=== PATIENT | male | born 1955 | race Caucasian/White ===

== ENCOUNTER 2016-04-22 11:25 | Emergency (ER) | payer BC ==
[2016-04-22] MEDS ORDERED: Sodium Chloride 0.9% 2.5 ML Syringe FLUSH PRN (11:47)
[2016-04-22] MEDS ORDERED: Sodium Chloride 0.9% 10 ML Syringe FLUSH PRN (11:47)
--- NOTE | 2016-04-22 11:57 | EDM.PDOC ---
ED HPI GENERAL MEDICAL PROBLEM - General Chief Complaint: General Stated Complaint: UNK Time Seen by Provider: 04/22/16 11:34 - History of Present Illness INITIAL COMMENTS - FREE TEXT/NARRATIVE: History of present illness: [] Patient has had 4 days of a strange sensation in his chest states it's not painful but just doesn't feel right. He feels that every 20th breath or so he has to take a deeper breath. He can't describe the quality of the sensation. He has a history of A. fib and is concerned he's been in A. fib. He took one aspirin this morning but denies any shortness of breath, dizziness, nausea, vomiting, diarrhea. Review of systems: As per history of present illness and below otherwise all systems reviewed and negative. Past medical history: As per history of present illness and as reviewed below otherwise noncontributory. Surgical history: As per history of present illness and as reviewed below otherwise noncontributory. Social history: No reported history of drug or alcohol abuse. Family history: As per history of present illness and as reviewed below otherwise noncontributory. Physical exam: General: Well developed, well nourished in NAD HEENT: Atraumatic, normocephalic, pupils reactive, negative for conjunctival pallor or scleral icterus, mucous membranes moist, throat clear, neck supple, nontender, trachea midline. Lungs: Clear to auscultation, breath sounds equal bilaterally, chest nontender. Heart: S1S2, regular, negative for clicks, rubs, or JVD. Abdomen: Soft, nondistended, nontender. Negative for masses or hepatosplenomegaly. Negative for costovertebral tenderness. Pelvis: Stable nontender. Genitourinary: Deferred. Rectal: Deferred. Extremities: Atraumatic, negative for cords or calf pain. Neurovascular unremarkable. Neuro: Awake, alert, oriented. Cranial nerves II through XII unremarkable. Cerebellum unremarkable. Motor and sensory unremarkable throughout. Exam nonfocal. Diagnostics: [] EKG shows normal sinus rhythm with occasional PVCs, no acute ischemia, labs rule out LA, given his symptoms have been present for 4 days. Therapeutics: [] Impression: [] Premature ventricular contractions Plan: [] Followup primary care physician return if symptoms worsen Definitive disposition and diagnosis as appropriate pending reevaluation and review of above. - Related Data Allergies Allergy/AdvReac Type Severity Reaction Status Date / Time cat dander Allergy watery eyes Verified 10/05/15 09:09 dust Allergy watery eyes Uncoded 10/05/15 09:09 Home Meds: Home Meds Aspirin [Halfprin] 81 mg PO ONETIME 05/23/15 [History] Acetaminophen/Diphenhydramine [Tylenol Pm Ex-Strength Caplet] 1 tab PO BEDTIME PRN 10/05/15 [History] Metoprolol Tartrate 25 mg PO BID 10/05/15 [History] Nitroglycerin [Nitrostat] 0.4 mg SL ASDIRECTED PRN 10/05/15 [History] Ranitidine HCl [Ranitidine] 150 mg PO BID 10/05/15 [History] Past Medical History HEENT History: Reports: None Other HEENT History: has upper dental plate Cardiovascular History: Reports: Afib Respiratory History: Reports: None Other Respiratory History: recently tested for sleep apnea (friday) Gastrointestinal History: Reports: GERD Genitourinary History: Reports: None Other Genitourinary History: symptoms of BPH Musculoskeletal History: Reports: None Neurological History: Reports: None Psychiatric History: Reports: None Endocrine/Metabolic History: Reports: None Hematologic History: Reports: None Other Hematologic History: pt states he "may have had blood transfusion with hernia repair" Immunologic History: Reports: None Oncologic (Cancer) History: Reports: None Dermatologic History: Reports: None - Infectious Disease History Infectious Disease History: Reports: Chicken pox, Measles, Mumps, Rubella - Past Surgical History Head Surgeries/Procedures: Reports: None GI Surgical History: Reports: Appendectomy, Hernia, inguinal Neurological Surgical History: Reports: None Dermatological Surgical History: Reports: None Social & Family History - Family History Family Medical History: Noncontributory - Tobacco Use Smoking Status *Q: Never Smoker Second Hand Smoke Exposure: No - Caffeine Use Caffeine Use: Reports: Soda - Recreational Drug Use Recreational Drug Use: No Drug Use in Last 12 Months: No ED ROS GENERAL - Review of Systems Review Of Systems: See Below (See history of present illness) ED EXAM, GENERAL - Physical Exam Exam: See Below (See history of present illness) Course - Vital Signs Last Recorded V/S: Last Vital Signs Temp 36.6 C 04/22/16 12:35 Pulse 59 L 04/22/16 12:35 Resp 17 04/22/16 12:35 BP 142/95 H 04/22/16 12:35 Pulse Ox 96 04/22/16 12:35 - Orders/Labs/Meds Orders: Active Orders 24 hr Category Date Time Status EKG 12 Lead [EKG Documentation Completion] [RC] STAT Care 04/22/16 11:56 Active Chest 1V Frontal [CR] Stat Exams 04/22/16 11:46 Taken Sodium Chloride 0.9% [Saline Flush] Med 04/22/16 11:47 Active 10 ml FLUSH ASDIRECTED PRN Sodium Chloride 0.9% [Saline Flush] Med 04/22/16 11:47 Active 2.5 ml FLUSH ASDIRECTED PRN Peripheral IV Insertion Adult [OM.PC] Stat Oth 04/22/16 11:46 Ordered Medication Orders Sodium Chloride (Saline Flush) 10 ml FLUSH ASDIRECTED PRN PRN Reason: Keep Vein Open Sodium Chloride (Saline Flush) 2.5 ml FLUSH ASDIRECTED PRN PRN Reason: Keep Vein Open Labs: Laboratory Tests 04/22/16 04/22/16 04/22/16 Range/Units 11:40 11:40 11:40 WBC 9.32 (4.0-11.0) K/uL RBC 4.88 (4.50-5.90) M/uL Hgb 14.0 (13.0-17.0) g/dL Hct 40.9 (38.0-50.0) % MCV 83.8 (80.0-98.0) fL MCH 28.7 (27.0-32.0) pg MCHC 34.2 (31.0-37.0) g/dL RDW Std Deviation 39.7 (28.0-62.0) fl RDW Coeff of Alessia 13 (11.0-15.0) % Plt Count 139 L (150-400) K/uL MPV 9.70 (7.40-12.00) fL Neut % (Auto) 44.4 L (48.0-80.0) % Lymph % (Auto) 45.5 H (16.0-40.0) % [place] % (Auto) 8.2 (0.0-15.0) % Eos % (Auto) 1.6 (0.0-7.0) % Baso % (Auto) 0.3 (0.0-1.5) % Neut # 4.1 (1.4-5.7) K/uL Lymph # 4.2 H (0.6-2.4) K/uL [place] # 0.8 (0.0-0.8) K/uL Eos # 0.2 (0.0-0.7) K/uL Baso # 0.0 (0.0-0.1) K/uL Nucleated RBC % 0.0 /100WBC Nucleated RBCs # 0 K/uL Sodium 140 (136-146) mmol/L Potassium 4.1 (3.5-5.1) mmol/L Chloride 109 (98-110) mmol/L Carbon Dioxide 23 (21-31) mmol/L BUN 18 (6.0-23.0) mg/dL Creatinine 1.3 (0.6-1.5) mg/dL Est Cr Clr Drug Dosing 57.00 mL/min Estimated GFR (MDRD) 55.9 ml/min Glucose 116 H (60-110) mg/dL Calcium 9.3 (8.8-10.8) mg/dL Total Bilirubin 1.0 (0.1-1.5) mg/dL AST 17 (5-40) IU/L ALT 23 (8-54) IU/L Alkaline Phosphatase 62 (40-150) Troponin I < 0.10 (0.0-0.29) NG/ML Total Protein 6.7 (6.0-8.0) g/dL Albumin 4.0 (3.4-4.8) g/dL Globulin 2.7 (2.0-3.5) g/dL Albumin/Globulin Ratio 1.5 (1.3-2.8) Meds: Medications Generic Name Dose Route Start Last Admin Trade Name Freq PRN Reason Stop Dose Admin Sodium Chloride 10 ml 04/22/16 11:47 Saline Flush FLUSH ASDIRECTED PRN Keep Vein Open Sodium Chloride 2.5 ml 04/22/16 11:47 Saline Flush FLUSH ASDIRECTED PRN Keep Vein Open Departure - Departure Time of Disposition: 13:00 Disposition: Home, Self-Care 01 Condition: good Clinical Impression: PVCs (premature ventricular contractions) Forms: ED Department Discharge Additional Instructions: The following information is given to patients seen in the emergency department who are being discharged to home. This information is to outline your options for follow-up care. We provide all patients seen in our emergency department with a follow-up referral. The need for follow-up, as well as the timing and circumstances, are variable depending upon the specifics of your emergency department visit. If you don't have a primary care physician on staff, we will provide you with a referral. We always advise you to contact your personal physician following an emergency department visit to inform them of the circumstance of the visit and for follow-up with them and/or the need for any referrals to a consulting specialist. The emergency department will also refer you to a specialist when appropriate. This referral assures that you have the opportunity for follow-up care with a specialist. All of these measure are taken in an effort to provide you with optimal care, which includes your follow-up. Under all circumstances we always encourage you to contact your private physician who remains a resource for coordinating your care. When calling for follow-up care, please make the office aware that this follow-up is from your recent emergency room visit. If for any reason you are refused follow-up, please contact the [facility] Emergency Department at and asked to speak to the emergency department charge nurse. [facility] Primary Care [address] [place], [place] [id number] - My Orders Last 24 Hours: My Active Orders 04/22/16 11:46 Chest 1V Frontal [CR] Stat Peripheral IV Insertion Adult [OM.PC] Stat 04/22/16 11:47 Sodium Chloride 0.9% [Saline Flush] 10 ml FLUSH ASDIRECTED PRN Sodium Chloride 0.9% [Saline Flush] 2.5 ml FLUSH ASDIRECTED PRN 04/22/16 11:56 EKG 12 Lead [EKG Documentation Completion] [RC] STAT - Assessment/Plan Last 24 Hours: My Active Orders 04/22/16 11:46 Chest 1V Frontal [CR] Stat Peripheral IV Insertion Adult [OM.PC] Stat 04/22/16 11:47 Sodium Chloride 0.9% [Saline Flush] 10 ml FLUSH ASDIRECTED PRN Sodium Chloride 0.9% [Saline Flush] 2.5 ml FLUSH ASDIRECTED PRN 04/22/16 11:56 EKG 12 Lead [EKG Documentation Completion] [RC] STAT
[2016-04-22 13:13] VITALS: BP 148/92
--- NOTE | 2016-04-24 15:31 | CR ---
EXAM DATE: 04/22/16 PATIENT'S AGE: 60 Patient: ARGELIA WHIPPLE Facility: [place], [place] Site . Site : 1955 Study: XRay Chest [id number] 12:20:24 PM Ordering Physician: Chuck Sheridan Final Report: INDICATION: Chest pain; shortness of breath. Comparison: Chest radiograph May 23, 2015. Technique: Portable AP chest . Findings: Normal size cardiac silhouette. Clear lung carboen with no evidence of acute pneumonic infiltrates or CHF. No pneumothorax or pleural effusion. Impression: Negative portable AP chest. Dictated by Darcie Lea MD @ Apr 22 2016 12:35PM (Electronic Signature) Report Signed by Proxy and Original Signed Document filed in the Medical Record. MTDD
== END 2016-04-22 13:20 | disposition home or self-care (01) ==
LOC: MW.ED 11:25
DX: I49.3 Ventricular premature depolarization (principal); Z90.49 Acquired absence of other specified parts of digestive tract
CPT/HCPCS: 36415; 71010; 71010-26; 80053; 84484; 85025; 93005; 99283; 99285-25

== ENCOUNTER 2018-07-19 08:29 | Observation (INO) | payer BC ==
[2018-07-19] MEDS ORDERED: Aspirin 81 MG Tab.Chew PO ONE (08:38)
[2018-07-19] MEDS: Nitroglycerin 0.4 MG Tab.SL SL PRN ×2 (08:45→08:50)
[2018-07-19] MEDS ORDERED: Ondansetron 4 MG/2 ML SDV IVPUSH ONE (08:53)
[2018-07-19 09:15] LABS: CHLORIDE,CL 105 mmol/L (98-107); SODIUM,NA 141 mmol/L (136-148)
--- NOTE | 2018-07-19 09:37 | CR ---
INDICATION: chest pain INDICATION: Chest pain. TECHNIQUE: Chest 1 view. COMPARISON: None FINDINGS: Cardiovascular and mediastinum: Heart size and vasculature are normal in caliber and appearance. Mediastinum is within normal limits. Lungs and pleural space: Lungs are clear. No sign of infiltrate or mass. No sign of pleural effusion. No pneumothorax. Bones and soft tissues: No significant findings. IMPRESSION: Lungs are clear. Dictated by Mele Ye MD @ 07/19/2018 9:36:23 AM Dictated by: Mele Ye MD @ 07/19/2018 09:36:30 (Electronically Signed)
[2018-07-19] MEDS ORDERED: Pneumococcal 23-Valent Conjugate Vaccine 0.5 ML Syringe IM ONE (10:26)
--- NOTE | 2018-07-19 17:27 | PCM.HP ---
H&P History of Present Illness - General Date of Service: 07/19/18 Admit Problem/Dx: Admission Diagnosis/Problem Admission Diagnosis/Problem Chest pain - History of Present Illness Initial Comments - Free Text/Narative: 62 yo male with past medical history of atrial fibrillation who presents to the ED with one day complaint of palpitations. Patient reports he gets a flutter feeling in his chest for several seconds about every forty minutes. he denies any shortness of breath, chest pain, cough, or fevers. Patient reports he did have atrial fibrillation three years ago and at the time he was on anticoagulation for several months. Now he takes only aspirin and metoprolol. - Related Data Allergies/Adverse Reactions: Allergies Allergy/AdvReac Type Severity Reaction Status Date / Time cat dander Allergy watery eyes Verified 07/19/18 08:41 dust Allergy watery eyes Uncoded 07/19/18 08:41 Home Medications: Home Meds Aspirin [Halfprin] 81 mg PO ONETIME 05/23/15 [History] Metoprolol Tartrate 25 mg PO BID 10/05/15 [History] Nitroglycerin [Nitrostat] 0.4 mg SL ASDIRECTED PRN 10/05/15 [History] Ranitidine HCl [Ranitidine] 150 mg PO BID 10/05/15 [History] Past Medical History HEENT History: Reports: None Other HEENT History: has upper dental plate Cardiovascular History: Reports: Afib Respiratory History: Reports: Sleep Apnea Other Respiratory History: recently tested for sleep apnea (friday) Gastrointestinal History: Reports: Hiatal Hernia Genitourinary History: Reports: None Other Genitourinary History: symptoms of BPH Musculoskeletal History: Reports: None Neurological History: Reports: None Psychiatric History: Reports: None Endocrine/Metabolic History: Reports: None Hematologic History: Reports: None Other Hematologic History: pt states he "may have had blood transfusion with hernia repair" Immunologic History: Reports: None Oncologic (Cancer) History: Reports: None Dermatologic History: Reports: None - Infectious Disease History Infectious Disease History: Reports: Chicken Pox, Mumps - Past Surgical History Head Surgeries/Procedures: Reports: None GI Surgical History: Reports: Appendectomy, Hernia, Inguinal Neurological Surgical History: Reports: None Musculoskeletal Surgical History: Reports: Other (See Below) Dermatological Surgical History: Reports: None Social & Family History - Family History Family Medical History: Noncontributory - Tobacco Use Smoking Status *Q: Never Smoker Second Hand Smoke Exposure: No - Caffeine Use Caffeine Use: Reports: Soda, Tea - Recreational Drug Use Recreational Drug Use: No H&P Review of Systems - Review of Systems: Review Of Systems: ROS reveals no pertinent complaints other than HPI. Exam - Exam Exam: See Below - Vital Signs Vital Signs: Last Vital Signs Temp 36.9 C 07/19/18 16:00 Pulse 55 L 07/19/18 16:00 Resp 18 07/19/18 16:00 BP 137/79 07/19/18 16:00 Pulse Ox 95 07/19/18 16:00 Weight: 87.543 kg - Exam General: Alert, Oriented Neck: Supple Lungs: Clear to Auscultation, Normal Respiratory Effort Cardiovascular: Regular Rate, Regular Rhythm GI/Abdominal Exam: Normal Bowel Sounds, Soft, Non-Tender Extremities: Normal Inspection, Non-Tender Skin: Warm, Dry, Intact Neurological: Cranial Nerves Intact. No: Focal Deficit - Patient Data Lab Results Last 24 hrs: Laboratory Results - last 24 hr 07/19/18 07/19/18 07/19/18 Range/Units 08:35 08:39 08:39 WBC 17.30 H (4.0-11.0) K/uL RBC 5.19 (4.50-5.90) M/uL Hgb 15.2 (13.0-17.0) g/dL Hct 45.0 (38.0-50.0) % MCV 86.7 (80.0-98.0) fL MCH 29.3 (27.0-32.0) pg MCHC 33.8 (31.0-37.0) g/dL RDW Std Deviation 41.9 (28.0-62.0) fl RDW Coeff of Alessia 13 (11.0-15.0) % Plt Count 154 (150-400) K/uL MPV 10.20 (7.40-12.00) fL Add Manual Diff YES Neutrophils % (Manual) 28 L (48.0-80.0) % Band Neutrophils % 1 % Lymphocytes % (Manual) 65 H (16.0-40.0) % Monocytes % (Manual) 3 (0.0-15.0) % Eosinophils % (Manual) 1 (0.0-7.0) % Metamyelocytes % 2 % Nucleated RBC % 0.0 /100WBC Absolute Seg Neuts 4.8 (1.4-5.7) Band Neutrophils # 0.2 Lymphocytes # (Manual) 11.2 H (0.6-2.4) Monocytes # (Manual) 0.5 (0.0-0.8) Eosinophils # (Manual) 0.2 (0.0-0.7) Absolute Metamyelocyte 0.3 Nucleated RBCs # 0 K/uL INR 1.07 Sodium (136-148) mmol/L Potassium (3.5-5.1) mmol/L Chloride (98-107) mmol/L Carbon Dioxide (21.0-32.0) mmol/L BUN (7.0-18.0) mg/dL Creatinine (0.8-1.3) mg/dL Est Cr Clr Drug Dosing mL/min Estimated GFR (MDRD) ml/min Glucose (74-106) mg/dL Calcium (8.5-10.1) mg/dL Magnesium (1.8-2.4) mg/dL Total Bilirubin (0.2-1.0) mg/dL AST (15-37) IU/L ALT (14-63) IU/L Alkaline Phosphatase (46-116) U/L Troponin I (0.000-0.056) ng/mL Total Protein (6.4-8.2) g/dL Albumin (3.4-5.0) g/dL Globulin (2.6-4.0) g/dL Albumin/Globulin Ratio (0.9-1.6) H. pylori IgG Antibody NEGATIVE (NEG) 07/19/18 07/19/18 Range/Units 08:39 14:43 WBC (4.0-11.0) K/uL RBC (4.50-5.90) M/uL Hgb (13.0-17.0) g/dL Hct (38.0-50.0) % MCV (80.0-98.0) fL MCH (27.0-32.0) pg MCHC (31.0-37.0) g/dL RDW Std Deviation (28.0-62.0) fl RDW Coeff of Alessia (11.0-15.0) % Plt Count (150-400) K/uL MPV (7.40-12.00) fL Add Manual Diff Neutrophils % (Manual) (48.0-80.0) % Band Neutrophils % % Lymphocytes % (Manual) (16.0-40.0) % Monocytes % (Manual) (0.0-15.0) % Eosinophils % (Manual) (0.0-7.0) % Metamyelocytes % % Nucleated RBC % /100WBC Absolute Seg Neuts (1.4-5.7) Band Neutrophils # Lymphocytes # (Manual) (0.6-2.4) Monocytes # (Manual) (0.0-0.8) Eosinophils # (Manual) (0.0-0.7) Absolute Metamyelocyte Nucleated RBCs # K/uL INR Sodium 141 (136-148) mmol/L Potassium 3.6 (3.5-5.1) mmol/L Chloride 105 (98-107) mmol/L Carbon Dioxide 26.6 (21.0-32.0) mmol/L BUN 20 H (7.0-18.0) mg/dL Creatinine 1.5 H (0.8-1.3) mg/dL Est Cr Clr Drug Dosing 48.13 mL/min Estimated GFR (MDRD) 47.1 ml/min Glucose 136 H (74-106) mg/dL Calcium 9.3 (8.5-10.1) mg/dL Magnesium 2.0 (1.8-2.4) mg/dL Total Bilirubin 0.8 (0.2-1.0) mg/dL AST 21 (15-37) IU/L ALT 38 (14-63) IU/L Alkaline Phosphatase 72 (46-116) U/L Troponin I < 0.050 < 0.050 (0.000-0.056) ng/mL Total Protein 7.1 (6.4-8.2) g/dL Albumin 4.1 (3.4-5.0) g/dL Globulin 3.0 (2.6-4.0) g/dL Albumin/Globulin Ratio 1.4 (0.9-1.6) H. pylori IgG Antibody (NEG) Result Diagrams: 07/19/18 08:39 07/19/18 08:39 Problem List Initiated/Reviewed/Updated: Yes Orders Last 24hrs: Active Orders 24 hr Category Date Time Status Patient Status [ADT] Stat ADT 07/19/18 09:42 Active Antiembolic Devices [RC] PER UNIT ROUTINE Care 07/19/18 17:22 Ordered EKG Documentation Completion [RC] STAT Care 07/19/18 08:39 Active Oxygen Therapy [RC] PRN Care 07/19/18 17:22 Ordered Telemetry Monitoring [Cardiac Monitoring] [RC] Q8H Care 07/19/18 08:39 Active Up ad Sol [RC] ASDIRECTED Care 07/19/18 17:22 Ordered VTE/DVT Education [RC] PER UNIT ROUTINE Care 07/19/18 17:22 Ordered Vital Signs [RC] Q4H Care 07/19/18 17:22 Ordered Regular Diet [DIET] Diet 07/19/18 Lunch Active TROPONIN I [CHEM] Q6H Lab 07/19/18 20:39 Ordered Aspirin [Halfprin] Med 07/20/18 09:00 Active 81 mg PO DAILY Metoprolol Tartrate [Lopressor] Med 07/19/18 21:00 Active 25 mg PO BID Nitroglycerin [Nitrostat] Med 07/19/18 08:38 Active 0.4 mg SL Q5M PRN Ranitidine [Zantac] Med 07/19/18 21:00 Active 150 mg PO BID Sequential Compression Device [OM.PC] Per Unit Routine Oth 07/19/18 17:22 Ordered Resuscitation Status Routine Resus Stat 07/19/18 17:22 Ordered Medication Orders Aspirin (Halfprin) 81 mg PO DAILY SAQIB Metoprolol Tartrate (Lopressor) 25 mg PO BID SAQIB Nitroglycerin (Nitrostat) 0.4 mg SL Q5M PRN PRN Reason: Chest Pain Last Admin: 07/19/18 08:45 Dose: 0.4 mg Ranitidine HCl (Zantac) 150 mg PO BID [facility] [place] [place] Assessment/Plan Comment:: 62 yo male who presents with palpitations. He is found to have an elevated white count but no obvious signs of infection. We will hydrate patient with IV fluids and monitor overnight on telemetry. Serial cardiac enzymes have been ordered.
[2018-07-19] MEDS: Pantoprazole 40 MG Tab.CR PO SCH (18:53)
[2018-07-19] MEDS: Sodium Chloride 0.9% 1,000 ML IV SCH (18:53)
[2018-07-19] MEDS: Ranitidine 15 MG/ML Syrup 10 ML UD Cup PO SCH (21:11)
[2018-07-19] MEDS: Metoprolol Tartrate 25 MG Tab PO SCH (21:11)
[2018-07-20] MEDS: Sodium Chloride 0.9% 1,000 ML IV SCH (02:35)
[2018-07-20] MEDS ORDERED: Acetaminophen 500 MG Tab PO ONE (03:48)
[2018-07-20] MEDS ORDERED: diphenhydrAMINE 25 MG Cap PO ONE (03:51)
[2018-07-20 07:46] VITALS: BP 126/74
[2018-07-20] MEDS ORDERED: Aspirin 81 MG Tab.EC PO SCH (09:00)
[2018-07-20] MEDS: Ranitidine 15 MG/ML Syrup 10 ML UD Cup PO SCH (09:19)
[2018-07-20] MEDS: Pantoprazole 40 MG Tab.CR PO SCH (09:19)
--- NOTE | 2018-07-20 09:20 | PCM.DCSUM1 ---
Discharge Summary - Hospital Course HPI Initial Comments: The patient was admitted secondary to chest pain and palpitations. Diagnosis: Stroke: No - Discharge Data Discharge Date: 07/20/18 Discharge Disposition: Home, Self-Care 01 Condition: Good - Discharge Diagnosis/Problem(s) (1) CKD (chronic kidney disease) stage 3, GFR 30-59 ml/min SNOMED Code(s): 619403928 ICD Code: N18.3 - CHRONIC KIDNEY DISEASE, STAGE 3 (MODERATE) Status: Chronic Priority: Medium (2) Hypertension SNOMED Code(s): 78969710 ICD Code: I10 - ESSENTIAL (PRIMARY) HYPERTENSION Status: Chronic Priority : High Qualifiers: Hypertension type: essential hypertension Qualified Code(s): I10 - Essential (primary) hypertension (3) Lymphocytosis SNOMED Code(s): 52615448 ICD Code: D72.820 - LYMPHOCYTOSIS (SYMPTOMATIC) Status: Chronic Priority : Medium (4) Atrial fibrillation SNOMED Code(s): 38110884 ICD Code: I48.91 - UNSPECIFIED ATRIAL FIBRILLATION Status: Resolved Priority: High Qualifiers: Atrial fibrillation type: unspecified Qualified Code(s): I48.91 - Unspecified atrial fibrillation (5) PVCs (premature ventricular contractions) SNOMED Code(s): 07894717 ICD Code: I49.3 - VENTRICULAR PREMATURE DEPOLARIZATION Status: Chronic Priority: Medium - Patient Summary/Data Hospital Course: The patient is a 62-year-old gentleman who had been admitted yesterday secondary to chest pain with atrial fibrillation. He had been complaining of one day's worth of palpitations. The patient was admitted, fluid hydrated and kept on telemetry. Telemetry did not show any events overnight. His EKG has shown no incidences. The patient also was noted to have troponins that were tested 3 which were essentially undetectable. The patient also had a BUN/ creatinine and creatinine both of which were minimally elevated which showed mild depression in his EGFR of 48.13 mL/m. The patient had been informed of this. Interestingly, the patient did have a white blood cell count that was elevated at 17,000 with 65% lymphocytes without signs of infection. I advised the patient to follow-up with his primary care physician for this. The patient had remained hemodynamically stable, in normal sinus rhythm, and well overnight. The patient has been recommended continue with a heart healthy diet. He is to follow-up with his primary care physician. The patient is to have activity as tolerated. The patient has been hemodynamically stable and he is discharged from hospitalization with recommendations listed above. - Patient Instructions Diet: Heart Healthy Diet Activity: As Tolerated Notify Provider of: Fever, Increased Pain - Discharge Plan *PRESCRIPTION DRUG MONITORING PROGRAM REVIEWED*: No *COPY OF PRESCRIPTION DRUG MONITORING REPORT IN PATIENT OLGA: No Home Medications: Home Meds Aspirin [Halfprin] 81 mg PO ONETIME 05/23/15 [History] Metoprolol Tartrate 25 mg PO BID 10/05/15 [History] Nitroglycerin [Nitrostat] 0.4 mg SL ASDIRECTED PRN 10/05/15 [History] Ranitidine HCl [Ranitidine] 150 mg PO BID 10/05/15 [History] Patient Handouts: VIS, Pneumococcal Conjugate (PCV13) - [facility] (12/15/2014), Nonspecific Chest Pain, [id number], Atrial Fibrillation, [id number] Referrals: Dayron Leung MD [Physician] - 08/17/18 1:00 pm Mele Ennis MD [Primary Care Provider] - 08/06/18 2:45 pm - Discharge Summary/Plan Comment DC Time >30 min.: Yes - General Info Date of Service: 07/22/18 Admission Dx/Problem (Free Text: Admission Diagnosis/Problem Admission Diagnosis/Problem Chest pain, history of a fib. Functional Status: Reports: Pain Controlled - Review of Systems General: Reports: No Symptoms HEENT: Reports: No Symptoms Pulmonary: Reports: No Symptoms Cardiovascular: Reports: No Symptoms Gastrointestinal: Reports: No Symptoms Genitourinary: Reports: No Symptoms Musculoskeletal: Reports: No Symptoms Skin: Reports: No Symptoms Neurological: Reports: No Symptoms Psychiatric: Reports: No Symptoms - Patient Data Vitals - Most Recent: Last Vital Signs Temp 36.3 C 07/20/18 07:45 Pulse 51 L 07/20/18 07:45 Resp 16 07/20/18 07:45 BP 126/74 07/20/18 07:45 Pulse Ox 97 07/20/18 07:45 Weight - Most Recent: 87.543 kg I&O - Last 24 hours: Intake & Output 07/19/18 07/20/18 07/20/18 22:59 06:59 14:59 Intake Total 610 1851 Output Total 500 1350 Balance 110 501 Lab Results - Last 24 hrs: Laboratory Results - last 24 hr 07/19/18 07/19/18 07/19/18 Range/Units 08:35 14:43 17:45 Magnesium 2.0 (1.8-2.4) mg/dL Troponin I < 0.050 (0.000-0.056) ng/mL Urine Color YELLOW Urine Appearance CLEAR Urine pH 7.0 (5.0-8.0) Ur Specific Hunter 1.010 (1.001-1.035) Urine Protein NEGATIVE (NEGATIVE) mg/dL Urine Glucose (UA) NEGATIVE (NEGATIVE) mg/dL Urine Ketones NEGATIVE (NEGATIVE) mg/dL Urine Occult Blood NEGATIVE (NEGATIVE) Urine Nitrite NEGATIVE (NEGATIVE) Urine Bilirubin NEGATIVE (NEGATIVE) Urine Urobilinogen 0.2 (<2.0) EU/dL Ur Leukocyte Esterase NEGATIVE (NEGATIVE) H. pylori IgG Antibody NEGATIVE (NEG) 07/19/18 Range/Units 21:00 Magnesium (1.8-2.4) mg/dL Troponin I < 0.050 (0.000-0.056) ng/mL Urine Color Urine Appearance Urine pH (5.0-8.0) Ur Specific Hunter (1.001-1.035) Urine Protein (NEGATIVE) mg/dL Urine Glucose (UA) (NEGATIVE) mg/dL Urine Ketones (NEGATIVE) mg/dL Urine Occult Blood (NEGATIVE) Urine Nitrite (NEGATIVE) Urine Bilirubin (NEGATIVE) Urine Urobilinogen (<2.0) EU/dL Ur Leukocyte Esterase (NEGATIVE) H. pylori IgG Antibody (NEG) Med Orders - Current: Current Medications Aspirin (Halfprin) 81 mg PO DAILY [facility] Last Admin: 07/20/18 09:19 Dose: 81 mg Sodium Chloride (Normal Saline) 1,000 mls @ 125 mls/hr IV ASDIRECTED [facility] Last Admin: 07/20/18 02:35 Dose: 125 mls/hr Metoprolol Tartrate (Lopressor) 25 mg PO BID [facility] Last Admin: 07/19/18 21:11 Dose: 25 mg Nitroglycerin (Nitrostat) 0.4 mg SL Q5M PRN PRN Reason: Chest Pain Last Admin: 07/19/18 08:45 Dose: 0.4 mg Pantoprazole Sodium (Protonix) 40 mg PO DAILY [facility] Last Admin: 07/20/18 09:19 Dose: 40 mg Ranitidine HCl (Zantac) 150 mg PO BID [facility] Last Admin: 07/20/18 09:19 Dose: 150 mg Discontinued Medications Acetaminophen (Tylenol Extra Strength) 500 mg PO ONETIME ONE Stop: 07/20/18 03:49 Last Admin: 07/20/18 04:10 Dose: 500 mg Aspirin (Aspirin) 324 mg PO ONETIME ONE Stop: 07/19/18 08:39 Last Admin: 07/19/18 08:43 Dose: 324 mg Diphenhydramine HCl (Benadryl) 25 mg PO ONETIME ONE Stop: 07/20/18 03:52 Last Admin: 07/20/18 04:10 Dose: 25 mg Ondansetron HCl (Zofran) 4 mg IVPUSH ONETIME ONE Stop: 07/19/18 08:54 Last Admin: 07/19/18 08:56 Dose: 4 mg Pneumococcal Polyvalent Vaccine (Pneumovax 23) 25 mcg IM .ONCE ONE Stop: 07/19/18 10:27 - Exam Quality Assessment: Denies: Supplemental Oxygen General: Reports: Alert, Oriented, Cooperative, No Acute Distress HEENT: Reports: Pupils Equal, Pupils Reactive Neck: Reports: Supple, Trachea Midline Lungs: Reports: Clear to Auscultation, Normal Respiratory Effort Cardiovascular: Reports: Regular Rate, Regular Rhythm GI/Abdominal Exam: Normal Bowel Sounds, Soft, Non-Tender, No Distention Back Exam: Reports: Normal Inspection, Full Range of Motion Extremities: Normal Inspection, Normal Range of Motion, No Pedal Edema Skin: Reports: Warm, Dry, Intact Neurological: Reports: No New Focal Deficit Psy/Mental Status: Reports: Alert, Normal Affect, Normal Mood
[2018-07-20] MEDS: Metoprolol Tartrate 25 MG Tab PO SCH (09:21)
[2018-07-20] MEDS ORDERED: Pneumococcal Polyvalent-23 Vaccine 0.5 ML SDV IM ONE (10:30)
--- NOTE | 2018-07-21 09:30 | EDM.PDOC ---
ED HPI GENERAL MEDICAL PROBLEM - General Chief Complaint: Cardiovascular Problem Stated Complaint: ERRATIC HEARTBEAT; AFIB INCIDENT BEFORE Time Seen by Provider: 07/19/18 08:35 Source of Information: Reports: Patient History Limitations: Reports: No Limitations - History of Present Illness INITIAL COMMENTS - FREE TEXT/NARRATIVE: History of present illness: []Patient states he woke up feeling like his heart was beating irregularly. He has had a history of A. fib in the past but is not been treated other than aspirin daily. Patient has a different sensation in his chest but it is not pain. He denies any shortness of breath, cough, fevers, chills, vomiting, diarrhea or syncope Review of systems: As per history of present illness and below otherwise all systems reviewed and negative. Past medical history: As per history of present illness and as reviewed below otherwise noncontributory. Surgical history: As per history of present illness and as reviewed below otherwise noncontributory. Social history: No reported history of drug or alcohol abuse. Family history: As per history of present illness and as reviewed below otherwise noncontributory. Physical exam: General: Well developed, well nourished in NAD HEENT: Atraumatic, normocephalic, pupils reactive, negative for conjunctival pallor or scleral icterus, mucous membranes moist, throat clear, neck supple, nontender, trachea midline. Lungs: Clear to auscultation, breath sounds equal bilaterally, chest nontender. Heart: S1S2, regular, negative for clicks, rubs, or JVD. Abdomen: NABS, Soft, nondistended, nontender. Negative for masses or hepatosplenomegaly. Negative for costovertebral tenderness. Pelvis: Stable nontender. Genitourinary: Deferred. Rectal: Deferred. Extremities: Atraumatic, negative for cords or calf pain. Neurovascular unremarkable. Neuro: Awake, alert, oriented. Cranial nerves II through XII unremarkable. Cerebellum unremarkable. Motor and sensory unremarkable throughout. Exam nonfocal. Skin:warm and dry Diagnostics: CBC, chemistry, EKG, chest x-ray, troponin Therapeutics: Aspirin, nitroglycerin ED Course: Stable Impression: Chest pain with palpitations Prescriptions: None Plan: Admit to hospitalist for observation Definitive disposition and diagnosis as appropriate pending reevaluation and review of above. - Related Data Allergies Allergy/AdvReac Type Severity Reaction Status Date / Time cat dander Allergy watery eyes Verified 07/19/18 08:41 dust Allergy watery eyes Uncoded 07/19/18 08:41 Home Meds: Home Meds Aspirin [Halfprin] 81 mg PO ONETIME 05/23/15 [History] Metoprolol Tartrate 25 mg PO BID 10/05/15 [History] Nitroglycerin [Nitrostat] 0.4 mg SL ASDIRECTED PRN 10/05/15 [History] Ranitidine HCl [Ranitidine] 150 mg PO BID 10/05/15 [History] Past Medical History HEENT History: Reports: None Other HEENT History: has upper dental plate Cardiovascular History: Reports: Afib Respiratory History: Reports: Sleep Apnea Other Respiratory History: recently tested for sleep apnea (friday) Gastrointestinal History: Reports: Hiatal Hernia Genitourinary History: Reports: None Other Genitourinary History: symptoms of BPH Musculoskeletal History: Reports: None Neurological History: Reports: None Psychiatric History: Reports: None Endocrine/Metabolic History: Reports: None Hematologic History: Reports: None Other Hematologic History: pt states he "may have had blood transfusion with hernia repair" Immunologic History: Reports: None Oncologic (Cancer) History: Reports: None Dermatologic History: Reports: None - Infectious Disease History Infectious Disease History: Reports: Chicken Pox, Mumps - Past Surgical History Head Surgeries/Procedures: Reports: None GI Surgical History: Reports: Appendectomy, Hernia, Inguinal Neurological Surgical History: Reports: None Musculoskeletal Surgical History: Reports: Other (See Below) Dermatological Surgical History: Reports: None Social & Family History - Family History Family Medical History: Noncontributory - Tobacco Use Smoking Status *Q: Never Smoker Second Hand Smoke Exposure: No - Caffeine Use Caffeine Use: Reports: Soda, Tea - Recreational Drug Use Recreational Drug Use: No ED ROS GENERAL - Review of Systems Review Of Systems: ROS reveals no pertinent complaints other than HPI. ED EXAM, GENERAL - Physical Exam Exam: See Below (See history of present illness) GI/Abdominal: Normal Bowel Sounds, Soft, Non-Tender Extremities: Normal Inspection, Non-Tender Course - Vital Signs Last Recorded V/S: Last Vital Signs Temp 97.3 F 07/20/18 07:45 Pulse 58 L 07/20/18 09:21 Resp 16 07/20/18 07:45 BP 126/74 07/20/18 09:21 Pulse Ox 97 07/20/18 07:45 - Orders/Labs/Meds Labs: Laboratory Tests 07/19/18 07/19/18 07/19/18 Range/Units 08:35 08:39 08:39 WBC 17.30 H (4.0-11.0) K/uL RBC 5.19 (4.50-5.90) M/uL Hgb 15.2 (13.0-17.0) g/dL Hct 45.0 (38.0-50.0) % MCV 86.7 (80.0-98.0) fL MCH 29.3 (27.0-32.0) pg MCHC 33.8 (31.0-37.0) g/dL RDW Std Deviation 41.9 (28.0-62.0) fl RDW Coeff of Alessia 13 (11.0-15.0) % Plt Count 154 (150-400) K/uL MPV 10.20 (7.40-12.00) fL Add Manual Diff YES Neutrophils % (Manual) 28 L (48.0-80.0) % Band Neutrophils % 1 % Lymphocytes % (Manual) 65 H (16.0-40.0) % Monocytes % (Manual) 3 (0.0-15.0) % Eosinophils % (Manual) 1 (0.0-7.0) % Metamyelocytes % 2 % Nucleated RBC % 0.0 /100WBC Absolute Seg Neuts 4.8 (1.4-5.7) Band Neutrophils # 0.2 Lymphocytes # (Manual) 11.2 H (0.6-2.4) Monocytes # (Manual) 0.5 (0.0-0.8) Eosinophils # (Manual) 0.2 (0.0-0.7) Absolute Metamyelocyte 0.3 Nucleated RBCs # 0 K/uL INR 1.07 Sodium (136-148) mmol/L Potassium (3.5-5.1) mmol/L Chloride (98-107) mmol/L Carbon Dioxide (21.0-32.0) mmol/L BUN (7.0-18.0) mg/dL Creatinine (0.8-1.3) mg/dL Est Cr Clr Drug Dosing mL/min Estimated GFR (MDRD) ml/min Glucose (74-106) mg/dL Calcium (8.5-10.1) mg/dL Total Bilirubin (0.2-1.0) mg/dL AST (15-37) IU/L ALT (14-63) IU/L Alkaline Phosphatase (46-116) U/L Troponin I (0.000-0.056) ng/mL Total Protein (6.4-8.2) g/dL Albumin (3.4-5.0) g/dL Globulin (2.6-4.0) g/dL Albumin/Globulin Ratio (0.9-1.6) H. pylori IgG Antibody NEGATIVE (NEG) 07/19/18 Range/Units 08:39 WBC (4.0-11.0) K/uL RBC (4.50-5.90) M/uL Hgb (13.0-17.0) g/dL Hct (38.0-50.0) % MCV (80.0-98.0) fL MCH (27.0-32.0) pg MCHC (31.0-37.0) g/dL RDW Std Deviation (28.0-62.0) fl RDW Coeff of Alessia (11.0-15.0) % Plt Count (150-400) K/uL MPV (7.40-12.00) fL Add Manual Diff Neutrophils % (Manual) (48.0-80.0) % Band Neutrophils % % Lymphocytes % (Manual) (16.0-40.0) % Monocytes % (Manual) (0.0-15.0) % Eosinophils % (Manual) (0.0-7.0) % Metamyelocytes % % Nucleated RBC % /100WBC Absolute Seg Neuts (1.4-5.7) Band Neutrophils # Lymphocytes # (Manual) (0.6-2.4) Monocytes # (Manual) (0.0-0.8) Eosinophils # (Manual) (0.0-0.7) Absolute Metamyelocyte Nucleated RBCs # K/uL INR Sodium 141 (136-148) mmol/L Potassium 3.6 (3.5-5.1) mmol/L Chloride 105 (98-107) mmol/L Carbon Dioxide 26.6 (21.0-32.0) mmol/L BUN 20 H (7.0-18.0) mg/dL Creatinine 1.5 H (0.8-1.3) mg/dL Est Cr Clr Drug Dosing 48.13 mL/min Estimated GFR (MDRD) 47.1 ml/min Glucose 136 H (74-106) mg/dL Calcium 9.3 (8.5-10.1) mg/dL Total Bilirubin 0.8 (0.2-1.0) mg/dL AST 21 (15-37) IU/L ALT 38 (14-63) IU/L Alkaline Phosphatase 72 (46-116) U/L Troponin I < 0.050 (0.000-0.056) ng/mL Total Protein 7.1 (6.4-8.2) g/dL Albumin 4.1 (3.4-5.0) g/dL Globulin 3.0 (2.6-4.0) g/dL Albumin/Globulin Ratio 1.4 (0.9-1.6) H. pylori IgG Antibody (NEG) Meds: Medications Discontinued Medications Generic Name Dose Route Start Last Admin Trade Name Freq PRN Reason Stop Dose Admin Acetaminophen 500 mg 07/20/18 03:48 07/20/18 04:10 Tylenol Extra Strength PO 07/20/18 03:49 500 mg ONETIME ONE Administration Aspirin 324 mg 07/19/18 08:38 07/19/18 08:43 Aspirin PO 07/19/18 08:39 324 mg ONETIME ONE Administration Aspirin 81 mg 07/20/18 09:00 07/20/18 09:19 Halfprin PO 81 mg DAILY [facility] Administration Diphenhydramine HCl 25 mg 07/20/18 03:51 07/20/18 04:10 Benadryl PO 07/20/18 03:52 25 mg ONETIME ONE Administration Sodium Chloride 1,000 mls @ 125 mls/hr 07/19/18 17:30 07/20/18 02:35 Normal Saline IV 125 mls/hr ASDIRECTED [facility]QIB Administration Metoprolol Tartrate 25 mg 07/19/18 21:00 07/20/18 09:21 Lopressor PO 25 mg BID [facility] Administration Nitroglycerin 0.4 mg 07/19/18 08:38 07/19/18 08:45 Nitrostat SL 0.4 mg Q5M PRN Administration Chest Pain Ondansetron HCl 4 mg 07/19/18 08:53 07/19/18 08:56 Zofran IVPUSH 07/19/18 08:54 4 mg ONETIME ONE Administration Pantoprazole Sodium 40 mg 07/19/18 17:30 07/20/18 09:19 Protonix PO 40 mg DAILY [facility] Administration Pneumococcal Polyvalent Vaccine 0.5 ml 07/20/18 10:30 07/20/18 10:46 Pneumovax 23 IM 07/20/18 10:31 0.5 ml .ONCE ONE Administration Ranitidine HCl 150 mg 07/19/18 21:00 07/20/18 09:19 Zantac PO 150 mg BID [facility] Administration Departure - Departure Time of Disposition: 10:10 Disposition: Refer to Observation Condition: Good Clinical Impression: Chest pain, Palpitations
== END 2018-07-20 11:30 | disposition home or self-care (01) ==
LOC: MW.ED 08:29 → MW.MS 09:46
PROVIDERS: ADMIT Internal Medicine; ATTEND Internal Medicine
DX: I48.91 Unspecified atrial fibrillation (principal); I49.3 Ventricular premature depolarization; I12.9 Hypertensive chronic kidney disease with stage 1 through stage 4 chronic kidney disease, or unspecified chronic kidney disease; N18.3 Chronic kidney disease, stage 3 (moderate); D72.820 Lymphocytosis (symptomatic); Z23 Encounter for immunization; Z79.82 Long term (current) use of aspirin; Z79.899 Other long term (current) drug therapy; Z91.09 Other allergy status, other than to drugs and biological substances
CPT/HCPCS: 36415; 71045; 80053; 81003; 83735; 84484; 85025; 85610; 86677; 90732; 93005; 96361; 96374; 99285; A9270; G0009; G0378; J2405; J7040

== ENCOUNTER 2018-09-14 12:19 | Day surgery (SDC) | payer BC ==
[~2018-09-14 12:19] MED LIST: Lactated Ringers 1,000 ML IV SCH
[2018-09-14] MEDS ORDERED: Ondansetron 4 MG/2 ML SDV ONE (12:33)
[2018-09-14] MEDS ORDERED: fentaNYL 100 MCG/2 ML SDV ONE (12:34)
[2018-09-14] MEDS ORDERED: Propofol 200 MG/20 ML SDV ONE (12:34)
[2018-09-14] MEDS ORDERED: Midazolam 1 MG/ML 2 ML SDV ONE (12:35)
--- NOTE | 2018-09-14 12:50 | PCM.PREANE ---
Preanesthetic Assessment - Anesthesia/Transfusion/Family Hx Anesthesia History: Prior Anesthesia Without Reaction Other Type of Anesthesia Reaction Comment: "mother was allergic to atropine" Family History of Anesthesia Reaction: No Transfusion History: No Prior Transfusion(s) Intubation History: Unknown - Review of Systems General: No Symptoms Pulmonary: No Symptoms Cardiovascular: No Symptoms Gastrointestinal: Abdominal Pain Neurological: No Symptoms Other: Reports: None - Physical Assessment Height: 5 ft 9 in Weight: 88.451 kg ASA Class: 3 Mental Status: Alert & Oriented x3 Airway Class: Mallampati = 2 Dentition: Reports: Dentures (upper) Thyro-Mental Finger Breadths: 3 Mouth Opening Finger Breadths: 3 ROM/Head Extension: Limited/Partial Lungs: Clear to Auscultation, Normal Respiratory Effort Cardiovascular: Regular Rate, Regular Rhythm - Allergies Allergies/Adverse Reactions: Allergies Allergy/AdvReac Type Severity Reaction Status Date / Time cat dander Allergy Itching Verified 09/10/18 09:49 dust Allergy Itching Uncoded 09/10/18 09:49 - Blood Blood Available: No - Anesthesia Plan Pre-Op Medication Ordered: None - Acknowledgements Anesthesia Type Planned: MAC Pt an Appropriate Candidate for the Planned Anesthesia: Yes Alternatives and Risks of Anesthesia Discussed w Pt/Guardian: Yes Pt/Guardian Understands and Agrees with Anesthesia Plan: Yes PreAnesthesia Questionnaire HEENT History: Other HEENT History: has upper dental plate Cardiovascular History: Reports: Afib (3 years ago- NSR after cardioversion), Hypertension, Other (See Below) (stress test a week ago was OK) Respiratory History: Reports: Sleep Apnea Other Respiratory History: uses CPAP Gastrointestinal History: Reports: GERD, Hiatal Hernia Genitourinary History: Reports: BPH Other Genitourinary History: symptoms of BPH Musculoskeletal History: Reports: Arthritis, Fracture Other Musculoskeletal History: hx fx clavicle Neurological History: Reports: None Psychiatric History: Reports: Anxiety Endocrine/Metabolic History: Reports: None Hematologic History: Reports: Other (See Below) Other Hematologic History: pt states he "may have had blood transfusion with hernia repair", WBC's elevated "may have CLL", states he is being tested Immunologic History: Reports: None Oncologic (Cancer) History: Reports: Leukemia (chronic leukocytic leukemia per patient) Dermatologic History: Reports: None - Infectious Disease History Infectious Disease History: Reports: Chicken Pox, Mumps - Past Surgical History Head Surgeries/Procedures: Reports: None HEENT Surgical History: Reports: None Cardiovascular Surgical History: Reports: Other (See Below) Other Cardiovascular Surgeries/Procedures: hx cardioversion for A-fib Respiratory Surgical History: Reports: None GI Surgical History: Reports: Appendectomy, Colonoscopy, EGD, Hernia, Inguinal Male Surgical History: Reports: None Endocrine Surgical History: Reports: None Neurological Surgical History: Reports: None Musculoskeletal Surgical History: Reports: Other (See Below) Other Musculoskeletal Surgeries/Procedures:: Right Knee Surgery Oncologic Surgical History: Reports: None Dermatological Surgical History: Reports: None - SUBSTANCE USE Smoking Status *Q: Never Smoker Recreational Drug Use History: No - HOME MEDS Home Medications: Home Meds Aspirin [Halfprin] 81 mg PO DAILY 05/23/15 [History] Metoprolol Tartrate 25 mg PO BID 10/05/15 [History] Nitroglycerin [Nitrostat] 0.4 mg SL ASDIRECTED PRN 10/05/15 [History] Ranitidine HCl [Ranitidine] 150 mg PO BID 10/05/15 [History] Acetaminophen/Diphenhydramine [Tylenol Pm Ex-Strength Caplet] 0.5 tab PO BEDTIME PRN 09/10/18 [History] amLODIPine [Norvasc] 5 mg PO BEDTIME 09/10/18 [History] - CURRENT (IN HOUSE) MEDS Current Meds: Current Medications Lactated Ringer's (Ringers, Lactated) 1,000 mls @ 125 mls/hr IV ASDIRECTED [facility]QIB Discontinued Medications Fentanyl (Sublimaze) Confirm Administered Dose 100 mcg .ROUTE .STK-MED ONE Stop: 09/14/18 12:35 Lidocaine HCl (Xylocaine-Mpf 1%) Confirm Administered Dose 5 mls @ as directed .ROUTE .STK-MED ONE Stop: 09/14/18 12:34 Midazolam HCl (Versed 1 Mg/Ml) Confirm Administered Dose 2 mg .ROUTE .STK-MED ONE Stop: 09/14/18 12:36 Ondansetron HCl (Zofran) Confirm Administered Dose 4 mg .ROUTE .STK-MED ONE Stop: 09/14/18 12:34 Propofol (Diprivan 20 Ml) Confirm Administered Dose 200 mg .ROUTE .STK-MED ONE Stop: 09/14/18 12:35
[2018-09-14] MEDS ORDERED: Lactated Ringers 1,000 ML IV SCH (13:45)
--- NOTE | 2018-09-14 13:47 | PCM.OPNOTE ---
- General Post-Op/Procedure Note Date of Surgery/Procedure: 09/14/18 Operative Procedure(s): Esophagogastroduodenoscopy with gastric and esophageal biopsies. Pre Op Diagnosis: Progressive heartburn. Post-Op Diagnosis: Chronic gastritis. Esophagitis. Anesthesia Technique: MAC (ASA III) Primary Surgeon: Fernando Sherman Condition: Good Free Text/Narrative:: DICTATION [id number] CPT CODE [id number]
--- NOTE | 2018-09-14 13:57 | PCM.POSTAN ---
POST ANESTHESIA ASSESSMENT - MENTAL STATUS Mental Status: Alert, Oriented - RESPIRATORY Respiratory Status: Respiratory Rate WNL, Airway Patent, O2 Saturation Stable - CARDIOVASCULAR CV Status: Pulse Rate WNL, Blood Pressure Stable - GASTROINTESTINAL GI Status: No Symptoms - PAIN Pain Score: 0 - POST OP HYDRATION Hydration Status: Adequate & Stable - OBSERVATIONS Free Text/Narrative:: No anesthesia problems, patient skipped recovery room stage of postoperative care.
[2018-09-14 13:59] VITALS: BP 132/77; PULSE 51
--- NOTE | 2018-09-14 14:03 | PCM48HPAN ---
Post Anesthesia Note - EVALUATION WITHIN 48HRS OF ANESTHETIC Vital Signs in Normal Range: Yes Patient Participated in Evaluation: Yes Respiratory Function Stable: Yes Airway Patent: Yes Cardiovascular Function Stable: Yes Hydration Status Stable: Yes Pain Control Satisfactory: Yes Nausea and Vomiting Control Satisfactory: Yes Mental Status Recovered: Yes Resp Rate: 12 - COMMENTS/OBSERVATIONS Free Text/Narrative:: no anesthesia problems
--- NOTE | 2018-09-14 14:05 | OR ---
SURGEON: Fernando Sherman M.D. DATE OF PROCEDURE: 09/14/2018 OPERATION PERFORMED: Esophagogastroduodenoscopy with gastric and esophageal biopsies. PRIMARY SURGEON: Fernando Sherman M.D. ANESTHESIA: MAC. ASA CLASSIFICATION: III. PREOPERATIVE DIAGNOSIS: Progressive heartburn symptoms with a history of hiatal hernia and family history of esophageal cancer. POSTOPERATIVE DIAGNOSES: 1. Mild gastritis. 2. Distal esophagitis. DESCRIPTION OF PROCEDURE: The patient was taken to the endoscopy room and positioned on the endoscopy table in the supine position. Time-out was called for appropriate identification of the patient and procedure. Monitored anesthesia care was provided. The bite block was placed between the patient's teeth. The gastroscope was inserted through the bite block, into the oropharynx, and advanced without difficulty through the esophagus and stomach into the duodenum where examination was now carried out in a retrograde fashion. The duodenum shows no acute inflammatory changes or ulcerations. The scope was withdrawn to the stomach that does show a [id number] distal gastritis. Antral biopsies were obtained to look for the presence of Helicobacter pylori. The gastroscope was then retroflexed to visualize the proximal stomach. No proximal lesions were identified. The patient does have a hiatal hernia that can be seen both in a retroflexed and forward viewing fashion. The gastroscope was straightened and slowly withdrawn carefully visualizing the greater and lesser curvatures as well as aspirating air and fluid as the scope was withdrawn. The GE junction is well defined, but there are inflammatory changes proximal to the esophageal hiatus. Separate biopsies of this area were obtained. The scope was then slowly withdrawn. The mid and proximal esophagus demonstrate good contractility. No lesions were identified. There was no stricture. The vocal cords were visualized as the scope was withdrawn and noted to move symmetrically. The gastroscope was then removed with the patient having tolerated the procedure well. He was taken to recovery room in stable condition. LEVY / PRAVEENA /[id number]
== END 2018-09-14 14:11 | disposition home or self-care (01) ==
LOC: MW.SDS 12:19
PROVIDERS: ATTEND Surgery
DX: K29.50 Unspecified chronic gastritis without bleeding (principal); K20.9 Esophagitis, unspecified; K21.9 Gastro-esophageal reflux disease without esophagitis; I10 Essential (primary) hypertension; G47.33 Obstructive sleep apnea (adult) (pediatric); M19.90 Unspecified osteoarthritis, unspecified site; Z87.19 Personal history of other diseases of the digestive system; Z80.0 Family history of malignant neoplasm of digestive organs; Z79.82 Long term (current) use of aspirin; Z79.899 Other long term (current) drug therapy; Z91.048 Other nonmedicinal substance allergy status; Z99.89 Dependence on other enabling machines and devices
CPT/HCPCS: 43239; J2001; J2250; J2405; J2704; J3010; J7120; 88305; 88312

== ENCOUNTER 2020-02-14 03:22 | Inpatient (IN) | payer BC ==
[2020-02-14] MEDS ORDERED: Sodium Chloride 0.9% 1,000 ML IV ONE (03:40)
[2020-02-14] MEDS ORDERED: Sodium Chloride 0.9% 10 ML Syringe FLUSH PRN (03:40)
[2020-02-14] MEDS ORDERED: Sodium Chloride 0.9% 2.5 ML Syringe FLUSH PRN (03:40)
[2020-02-14] MEDS ORDERED: Diltiazem 25 MG/5 ML SDV IVPUSH ONE (03:42)
[2020-02-14] MEDS ORDERED: Diltiazem 100 MG in Sodium Chloride 0.9% 100 ML IV SCH ×2 (03:45→11:30)
[2020-02-14] MEDS ORDERED: Sodium Chloride 0.9% 100 ML ONE (03:48)
--- NOTE | 2020-02-14 03:48 | EDM.PDOC ---
ED HPI GENERAL MEDICAL PROBLEM - General Chief Complaint: Cardiovascular Problem Stated Complaint: IRREGULAR HEARTBEAT Time Seen by Provider: 02/14/20 03:39 - History of Present Illness INITIAL COMMENTS - FREE TEXT/NARRATIVE: HISTORY AND PHYSICAL: History of present illness: This is a 64-year-old gentleman with a history significant for atrial fibrillation that was diagnosed in 2016, hypertension, chronic kidney disease, chronic lymphocytic leukemia, who presents ER today secondary to having a funny sensation in his midsternal area with palpitations consistent with his prior episode of atrial fibrillation. Patient reports that he was diagnosed with atrial fibrillation in 2016, he was transferred to [facility] where he was electrically cardioverted back to sinus rhythm and has been in sinus rhythm since. Patient reports that he had an admission in 2018 secondary to multiple PVCs. Patient reports that he has been on a beta-kevin as well as calcium channel kevin for his hypertension since. Patient denies any recent fevers, shakes, chills, nausea, vomiting, diarrhea, dysuria, frequency, urgency, hematuria, melena, bright red blood per rectum. Patient denies any abdominal discomfort. Review of systems: As per history of present illness and below otherwise all systems reviewed and negative. Past medical history: As per history of present illness and as reviewed below otherwise noncontributory. Surgical history: As per history of present illness and as reviewed below otherwise noncontributory. Social history: No reported history of drug or alcohol abuse. Family history: As per history of present illness and as reviewed below otherwise noncontributory. Physical exam: Constitutional: Patient is oriented to person, place, and time. Appears well- developed and well-nourished. No distress. HEENT: Moist mucous membranes Head: Normocephalic and atraumatic Eyes: Right eye exhibits no discharge. Left eye exhibits no discharge. No scleral icterus Neck: Normal range of motion. No tracheal deviation present. Cardiovascular: Irregularly irregular with a heart rate of 1 30-150. Pulmonary: Effort normal, no respiratory distress. Abdominal: No distention Musculoskeletal: Normal range of motion Neurologic: Alert and oriented to person, place and time. Skin: [place], warm and dry. Psychiatric: Normal mood and affect. Behavior is normal. Judgment and thought content normal. Nursing note and vital signs have been reviewed This patient was seen and evaluated during the 2019 SARS-CoV-2 novel coronavirus pandemic period. Community viral transmission is ongoing at time of this encounter and the emergency department is operating under pandemic response procedures. Diagnostics: EKG: As interpreted by ER physician: Augustin: Nonspecific ST-T wave abnormalities Normal axis No evidence of ST elevation [place] Atrial fibrillation with a heart rate of 137 Chest Xray: Normal cardiac silhouette No infiltrates or effusions identified. No PTX No evidence of acute bony fracture. As interpreted by ER MD: Augustin Assessment and plan: Is a 64-year-old gentleman who presents ER today secondary to onset of palpitation is midsternal region consistent with his prior episodes of atrial fibrillation. Patient is clinically hemodynamically stable in the ED. Patient does appear to be in atrial fibrillation with RVR here in the ED. Patient will be given Cardizem 20 mg IV push followed by Cardizem drip at 5 mils per hour. Patient responded well to the Cardizem bolus and Cardizem drip. Patient's heart rate currently on a Cardizem drip at 5 mL/h is bouncing between 80 to 110 bpm. Case discussed with Dr. Berger who is agreed to assist with inpatient level of care. Critical Care: The high probability of sudden, clinically significant deterioration in the patient's condition required the highest level of my preparedness to intervene urgently. The services I provided to this patient were to treat and/or prevent clinically significant deterioration. Services included the following: chart data review, reviewing nursing notes and/or old charts, documentation time, incident response consultant collaboration regarding findings and treatment options, medication orders and management, direct patient care, vital sign assessments and ordering, interpreting and reviewing diagnostic studies/lab tests. Aggregate critical care time includes only time during which I was engaged inwork directly related to the patient's care, as described above, whether at the bedside or elsewhere in the Emergency Department. It did not include time spent performing other reported procedures or the services of residents, students, nurses or physician assistants. Critical Care Time: 35 minutes Definitive disposition and diagnosis as appropriate pending reevaluation and review of above. chest area Pain Score (Numeric/FACES): 2 - Related Data Allergies Allergy/AdvReac Type Severity Reaction Status Date / Time cat dander Allergy Itching Verified 02/14/20 03:34 dust Allergy Itching Uncoded 02/14/20 03:34 Home Meds: Home Meds Aspirin [Halfprin] 81 mg PO DAILY 05/23/15 [History] Metoprolol Tartrate 25 mg PO BID 10/05/15 [History] Nitroglycerin [Nitrostat] 0.4 mg SL ASDIRECTED PRN 10/05/15 [History] amLODIPine [Norvasc] 5 mg PO BEDTIME 09/10/18 [History] Past Medical History HEENT History: Reports: None Other HEENT History: has upper dental plate Cardiovascular History: Reports: Afib, Hypertension Respiratory History: Reports: Sleep Apnea Other Respiratory History: recently tested for sleep apnea (friday) Gastrointestinal History: Reports: Hiatal Hernia Genitourinary History: Reports: None Other Genitourinary History: symptoms of BPH Musculoskeletal History: Reports: None Other Musculoskeletal History: hx fx clavicle Neurological History: Reports: None Psychiatric History: Reports: Anxiety Endocrine/Metabolic History: Reports: None Insulin Pump Model and Security Systems Manager: None Hematologic History: Reports: None Other Hematologic History: pt states he "may have had blood transfusion with hernia repair" Immunologic History: Reports: None Oncologic (Cancer) History: Reports: Leukemia Dermatologic History: Reports: None - Infectious Disease History Infectious Disease History: Reports: Chicken Pox, Mumps - Past Surgical History Head Surgeries/Procedures: Reports: None HEENT Surgical History: Reports: None Cardiovascular Surgical History: Reports: Other (See Below) Other Cardiovascular Surgeries/Procedures: hx cardioversion and MAUREEN Respiratory Surgical History: Reports: None GI Surgical History: Reports: Appendectomy, Hernia, Inguinal Male Surgical History: Reports: None Endocrine Surgical History: Reports: None Neurological Surgical History: Reports: None Musculoskeletal Surgical History: Reports: Other (See Below) Other Musculoskeletal Surgeries/Procedures:: Right Knee Surgery Oncologic Surgical History: Reports: None Dermatological Surgical History: Reports: None Social & Family History - Family History Family Medical History: No Pertinent Family History - Tobacco Use Tobacco Use Status *Q: Never Tobacco User - Caffeine Use Caffeine Use: Reports: Soda, Tea - Recreational Drug Use Recreational Drug Use: No ED ROS GENERAL - Review of Systems Review Of Systems: See Below ED EXAM, GENERAL - Physical Exam Exam: See Below #1 Interpretation EKG Interpretation Comments: EKG: As interpreted by ER physician: Augustin: Nonspecific ST-T wave abnormalities Normal axis No evidence of ST elevation [place] Atrial fibrillation with a heart rate of 137 Course - Vital Signs Last Recorded V/S: Last Vital Signs Temp 97.1 F 01/04/21 03:25 Pulse 118 H 02/14/20 04:07 Resp 16 02/14/20 04:07 BP 125/71 02/14/20 04:07 Pulse Ox 98 02/14/20 04:07 - Orders/Labs/Meds Orders: Active Orders 24 hr Category Date Time Status Patient Status [ADT] Routine ADT 02/14/20 04:39 Active EKG Documentation Completion [RC] AM Care 02/14/20 03:40 Active CORONAVIRUS COVID-19 [place] [MOLEC] Stat Lab 02/14/20 03:50 Received Diltiazem [Cardizem] 100 mg Med 02/14/20 03:45 Active Sodium Chloride 0.9% [Normal Saline] 100 ml IV NOW Sodium Chloride 0.9% [Saline Flush] Med 02/14/20 03:40 Active 10 ml FLUSH ASDIRECTED PRN Sodium Chloride 0.9% [Saline Flush] Med 02/14/20 03:40 Active 2.5 ml FLUSH ASDIRECTED PRN Saline Lock Insert [OM.PC] Stat Oth 02/14/20 03:40 Ordered Medication Orders Diltiazem HCl 100 mg/ Sodium (Chloride) 100 mls @ 5 mls/hr IV NOW SAQIB; Protocol Last Admin: 02/14/20 03:50 Dose: 5 mg/hr, 5 mls/hr Documented by: MARILEE Sodium Chloride (Saline Flush) 10 ml FLUSH ASDIRECTED PRN PRN Reason: Keep Vein Open Last Admin: 02/14/20 03:46 Dose: 10 ml Documented by: MARIANNE Sodium Chloride (Saline Flush) 2.5 ml FLUSH ASDIRECTED PRN PRN Reason: Keep Vein Open Last Admin: 02/14/20 03:44 Dose: 2.5 ml Documented by: MARIANNE Labs: Laboratory Tests 02/14/20 02/14/20 02/14/20 Range/Units 03:30 03:30 03:30 WBC 27.19 H (4.0-11.0) K/uL RBC 5.03 (4.50-5.90) M/uL Hgb 14.7 (13.0-17.0) g/dL Hct 44.0 (38.0-50.0) % MCV 87.5 (80.0-98.0) fL MCH 29.2 (27.0-32.0) pg MCHC 33.4 (31.0-37.0) g/dL RDW Std Deviation 46.0 (28.0-62.0) fl RDW Coeff of Alessia 14 (11.0-15.0) % Plt Count 193 (150-400) K/uL MPV 10.00 (7.40-12.00) fL Add Manual Diff YES Neutrophils % (Manual) 28 L (48.0-80.0) % Lymphocytes % (Manual) 67 H (16.0-40.0) % Monocytes % (Manual) 5 (0.0-15.0) % Nucleated RBC % 0.0 /100WBC Absolute Seg Neuts 7.6 H (1.4-5.7) Lymphocytes # (Manual) 18.2 H (0.6-2.4) Monocytes # (Manual) 1.4 H (0.0-0.8) Nucleated RBCs # 0 K/uL Smudge Cells FEW INR 1.07 APTT 27.9 (18.6-31.3) SEC Sodium 136 (136-148) mmol/L Potassium 4.0 (3.5-5.1) mmol/L Chloride 103 (98-107) mmol/L Carbon Dioxide 23.9 (21.0-32.0) mmol/L BUN 20 H (7.0-18.0) mg/dL Creatinine 1.5 H (0.8-1.3) mg/dL Est Cr Clr Drug Dosing 46.87 mL/min Estimated GFR (MDRD) 46.8 ml/min Glucose 130 H (74-106) mg/dL Calcium 9.0 (8.5-10.1) mg/dL Total Bilirubin 0.5 (0.2-1.0) mg/dL AST 23 (15-37) IU/L ALT 45 (14-63) IU/L Alkaline Phosphatase 87 (46-116) U/L Troponin I < 0.050 (0.000-0.056) ng/mL Total Protein 7.0 (6.4-8.2) g/dL Albumin 4.0 (3.4-5.0) g/dL Globulin 3.0 (2.6-4.0) g/dL Albumin/Globulin Ratio 1.3 (0.9-1.6) TSH 3rd Generation 5.09 H (0.36-3.74) uIU/mL Meds: Medications Generic Name Dose Route Start Last Admin Trade Name Freq PRN Reason Stop Dose Admin Diltiazem HCl 100 mg/ Sodium 100 mls @ 5 mls/hr 02/14/20 03:45 02/14/20 03:50 Chloride IV 5 mg/hr NOW SAQIB 5 mls/hr Administration Protocol 5 MG/HR Sodium Chloride 10 ml 02/14/20 03:40 02/14/20 03:46 Saline Flush FLUSH 10 ml ASDIRECTED PRN Administration Keep Vein Open Sodium Chloride 2.5 ml 02/14/20 03:40 02/14/20 03:44 Saline Flush FLUSH 2.5 ml ASDIRECTED PRN Administration Keep Vein Open Discontinued Medications Generic Name Dose Route Start Last Admin Trade Name Freq PRN Reason Stop Dose Admin Diltiazem HCl 20 mg 02/14/20 03:42 02/14/20 03:45 Diltiazem IVPUSH 02/14/20 03:43 20 mg ONETIME ONE Administration Sodium Chloride 1,000 mls @ 999 mls/hr 02/14/20 03:40 02/14/20 03:44 Normal Saline IV 02/14/20 04:40 999 mls/hr .Bolus ONE Administration Sodium Chloride Confirm 02/14/20 03:48 02/14/20 03:51 Normal Saline Administered 02/14/20 03:49 Not Given Dose 100 mls @ as directed .ROUTE .STK-MED ONE Departure - Departure Time of Disposition: 04:38 Disposition: Admitted As Inpatient 64 Clinical Impression: Atrial fibrillation with rapid ventricular response, CLL (chronic lymphocytic leukemia), Elevated TSH Referrals: PCP,None [Primary Care Provider] - Forms: ED Department Discharge Sepsis Event Note (ED) - Evaluation Sepsis Screening Result: No Definite Risk - Focused Exam Vital Signs: Vital Signs Temp Pulse Resp BP Pulse Ox 02/14/20 04:07 118 H 16 125/71 98 02/14/20 03:25 97.1 F 136 H 18 109/72 97 - My Orders Last 24 Hours: My Active Orders 02/14/20 03:40 EKG Documentation Completion [RC] AM Sodium Chloride 0.9% [Saline Flush] 10 ml FLUSH ASDIRECTED PRN Sodium Chloride 0.9% [Saline Flush] 2.5 ml FLUSH ASDIRECTED PRN Saline Lock Insert [OM.PC] Stat 02/14/20 03:45 Diltiazem [Cardizem] 100 mg Sodium Chloride 0.9% [Normal Saline] 100 ml IV NOW 02/14/20 03:50 CORONAVIRUS COVID-19 [place] [[facility]LEC] Stat 02/14/20 04:39 Patient Status [ADT] Routine - Assessment/Plan Last 24 Hours: My Active Orders 02/14/20 03:40 EKG Documentation Completion [RC] AM Sodium Chloride 0.9% [Saline Flush] 10 ml FLUSH ASDIRECTED PRN Sodium Chloride 0.9% [Saline Flush] 2.5 ml FLUSH ASDIRECTED PRN Saline Lock Insert [OM.PC] Stat 02/14/20 03:45 Diltiazem [Cardizem] 100 mg Sodium Chloride 0.9% [Normal Saline] 100 ml IV NOW 02/14/20 03:50 CORONAVIRUS COVID-19 [place] [MOLEC] Stat 02/14/20 04:39 Patient Status [ADT] Routine
--- NOTE | 2020-02-14 04:21 | CR ---
INDICATION: Chest pain TECHNIQUE: Chest radiograph 1 view COMPARISON: 07/19/2018 FINDINGS: Mediastinum: The mediastinum is normal in appearance. The heart silhouette is normal in size and morphology. Lung: Both lungs are unremarkable in appearance. No sign of pleural effusion seen. No pneumothorax is identified. Bone and Soft tissue: Unremarkable for age. IMPRESSION: 1. No acute cardiopulmonary disease is seen. Dictated by: Mook Salinas MD @ 02/14/2020 04:19:48 (Electronically Signed)
[2020-02-14 04:26] LABS: BLOOD UREA NITROGEN,BUN 20 mg/dL (7.0-18.0); CARBON DIOXIDE,CO2 23.9 mmol/L (21.0-32.0); CHLORIDE,CL 103 mmol/L (98-107); GLUCOSE RANDOM 130 mg/dL (74-106); SODIUM,NA 136 mmol/L (136-148)
--- NOTE | 2020-02-14 08:00 | PCM.HP.2 ---
H&P History of Present Illness - General Date of Service: 02/14/20 Admit Problem/Dx: Admission Diagnosis/Problem Admission Diagnosis/Problem Atrial fibrillation with rapid ventricular response Source of Information: Patient History Limitations: Reports: No Limitations - History of Present Illness Initial Comments - Free Text/Narative: This 64-year-old male with past medical history of hypertension, CLL cardioversion 2016 for A. fib RVR presented to the ER today with complaints of palpitations. He reports he was just laying down to bed in the middle of the night and had a fluttering sensation in his epigastric region. He denies any chest pain shortness of breath lightheadedness or dizziness. He reports it felt very similar to the time before when he had A. fib in 2016. When he presented to the ER he was noted to have A. fib RVR on EKG. He reports since 2016 cardioversion he denies any other atrial fibrillation events that he is aware of. He is followed closely with his CLL which is stage [address] Vides. Reports he is taking amlodipine 5 mg for hypertension which is been well controlled. He denies any recent illness no long travel and no shortness of breath. He denies any fevers or chills no cough. Denies any focal neurological deficits. He denies any tobacco use, no recreational drug use and no alcohol use. He reports he does drink black tea at home but otherwise no other caffeine-containing drinks. In the ER leukocytosis was noted at 27,000 which is his baseline. BMP was stable BUN 20 creatinine 1.5 troponin was negative TSH mildly elevated at 5.09 chest x-ray was negative. Potassium 4.0 magnesium 2.2. He was given Cardizem 20 mg IV push then started on Cardizem drip he has since been weaned down to 5 mg/h. Heart rate continues to be controlled rhythm is atrial fibrillation. He admitted to ICU for A. fib RVR. Per chart review echo was completed in 2016 EF of 60 to 65% mild aortic valve sclerosis with no stenosis. He did previously have a MAUREEN prior to cardioversion in [address] which was [address] Ennis chest area Pain Score (Numeric/FACES): 2 - Related Data Allergies/Adverse Reactions: Allergies Allergy/AdvReac Type Severity Reaction Status Date / Time cat dander Allergy Itching Verified 02/14/20 03:34 dust Allergy Itching Uncoded 02/14/20 03:34 Home Medications: Home Meds Aspirin [Halfprin] 81 mg PO DAILY 05/23/15 [History] Metoprolol Tartrate 25 mg PO BID 10/05/15 [History] Nitroglycerin [Nitrostat] 0.4 mg SL ASDIRECTED PRN 10/05/15 [History] amLODIPine [Norvasc] 5 mg PO DAILY 09/10/18 [History] Past Medical History HEENT History: Reports: None Other HEENT History: has upper dental plate Cardiovascular History: Reports: Afib, Hypertension, Other (See Below) Other Cardiovascular History: PVC Respiratory History: Reports: Sleep Apnea Other Respiratory History: recently tested for sleep apnea (friday) Gastrointestinal History: Reports: Hiatal Hernia Genitourinary History: Reports: Renal Disease Other Genitourinary History: symptoms of BPH Musculoskeletal History: Reports: None Other Musculoskeletal History: hx fx clavicle Neurological History: Reports: None Psychiatric History: Reports: Anxiety Endocrine/Metabolic History: Reports: None [employer] Maintenance: None Hematologic History: Reports: None Other Hematologic History: pt states he "may have had blood transfusion with hernia repair" Immunologic History: Reports: None Oncologic (Cancer) History: Reports: Leukemia Dermatologic History: Reports: None - Infectious Disease History Infectious Disease History: Reports: Chicken Pox, Mumps - Past Surgical History Head Surgeries/Procedures: Reports: None HEENT Surgical History: Reports: None Cardiovascular Surgical History: Reports: Other (See Below) Other Cardiovascular Surgeries/Procedures: hx cardioversion and MAUREEN Respiratory Surgical History: Reports: None GI Surgical History: Reports: Appendectomy, Hernia, Inguinal Male Surgical History: Reports: None Endocrine Surgical History: Reports: None Neurological Surgical History: Reports: None Musculoskeletal Surgical History: Reports: Other (See Below) Other Musculoskeletal Surgeries/Procedures:: Right Knee Surgery Oncologic Surgical History: Reports: None Dermatological Surgical History: Reports: None Social & Family History - Family History Family Medical History: No Pertinent Family History - Tobacco Use Tobacco Use Status *Q: Never Tobacco User - Caffeine Use Caffeine Use: Reports: Soda, Tea - Recreational Drug Use Recreational Drug Use: No H&P Review of Systems - Review of Systems: Review Of Systems: See Below General: Reports: No Symptoms. Denies: Fever, Chills, Malaise, Weakness, Fatigue HEENT: Reports: No Symptoms. Denies: Headaches, Sinus Congestion, Sore Throat, Vertigo Pulmonary: Denies: Shortness of Breath, Cough Cardiovascular: Reports: Palpitations. Denies: Chest Pain, Dyspnea on Exertion, Edema, Lightheadedness, Syncope, Blood Pressure Problem Gastrointestinal: Reports: No Symptoms. Denies: Abdominal Pain, Black Stool, Bloody Stool, Nausea, Vomiting Genitourinary: Reports: No Symptoms. Denies: Dysuria, Frequency, Burning Musculoskeletal: Reports: No Symptoms Skin: Reports: No Symptoms Psychiatric: Reports: No Symptoms Neurological: Reports: No Symptoms Hematologic/Lymphatic: Reports: No Symptoms Immunologic: Reports: No Symptoms Exam - Exam Exam: See Below - Vital Signs Vital Signs: Last Vital Signs Temp 97.1 F 02/14/20 03:25 Pulse 85 02/14/20 06:42 Resp 16 02/14/20 06:42 BP 119/71 02/14/20 06:42 Pulse Ox 95 02/14/20 06:42 Weight: 88.451 kg - Exam Quality Assessment: DVT Prophylaxis. No: Supplemental Oxygen General: Alert, Oriented, Cooperative HEENT: Conjunctiva Clear, Mucosa Moist & [place], Posterior Pharynx Clear Lungs: Clear to Auscultation, Normal Respiratory Effort Cardiovascular: Irregular Rhythm. No: Tachycardia, Systolic Murmur GI/Abdominal Exam: Normal Bowel Sounds. No: Soft, Non-Tender Extremities: Normal Inspection, Normal Range of Motion, Non-Tender, No Pedal Edema Neuro Extensive - Mental Status: Alert, Oriented x3 Neuro Extensive - Motor, Sensory, Reflexes: CN II-XII Intact Psychiatric: Alert, Normal Affect, Normal Mood - Patient Data Lab Results Last 24 hrs: Laboratory Results - last 24 hr 02/14/20 02/14/20 02/14/20 Range/Units 03:30 03:30 03:30 WBC 27.19 H (4.0-11.0) K/uL RBC 5.03 (4.50-5.90) M/uL Hgb 14.7 (13.0-17.0) g/dL Hct 44.0 (38.0-50.0) % MCV 87.5 (80.0-98.0) fL MCH 29.2 (27.0-32.0) pg MCHC 33.4 (31.0-37.0) g/dL RDW Std Deviation 46.0 (28.0-62.0) fl RDW Coeff of Alessia 14 (11.0-15.0) % Plt Count 193 (150-400) K/uL MPV 10.00 (7.40-12.00) fL Add Manual Diff YES Neutrophils % (Manual) 28 L (48.0-80.0) % Lymphocytes % (Manual) 67 H (16.0-40.0) % Monocytes % (Manual) 5 (0.0-15.0) % Nucleated RBC % 0.0 /100WBC Absolute Seg Neuts 7.6 H (1.4-5.7) Lymphocytes # (Manual) 18.2 H (0.6-2.4) Monocytes # (Manual) 1.4 H (0.0-0.8) Nucleated RBCs # 0 K/uL Smudge Cells FEW INR 1.07 APTT 27.9 (18.6-31.3) SEC Sodium 136 (136-148) mmol/L Potassium 4.0 (3.5-5.1) mmol/L Chloride 103 (98-107) mmol/L Carbon Dioxide 23.9 (21.0-32.0) mmol/L BUN 20 H (7.0-18.0) mg/dL Creatinine 1.5 H (0.8-1.3) mg/dL Est Cr Clr Drug Dosing 46.87 mL/min Estimated GFR (MDRD) 46.8 ml/min Glucose 130 H (74-106) mg/dL Calcium 9.0 (8.5-10.1) mg/dL Total Bilirubin 0.5 (0.2-1.0) mg/dL AST 23 (15-37) IU/L ALT 45 (14-63) IU/L Alkaline Phosphatase 87 (46-116) U/L Troponin I < 0.050 (0.000-0.056) ng/mL Total Protein 7.0 (6.4-8.2) g/dL Albumin 4.0 (3.4-5.0) g/dL Globulin 3.0 (2.6-4.0) g/dL Albumin/Globulin Ratio 1.3 (0.9-1.6) TSH 3rd Generation 5.09 H (0.36-3.74) uIU/mL SARS-CoV-2 RNA ([place]) (NEGATIVE) 02/14/20 Range/Units 03:50 WBC (4.0-11.0) K/uL RBC (4.50-5.90) M/uL Hgb (13.0-17.0) g/dL Hct (38.0-50.0) % MCV (80.0-98.0) fL MCH (27.0-32.0) pg MCHC (31.0-37.0) g/dL RDW Std Deviation (28.0-62.0) fl RDW Coeff of Alessia (11.0-15.0) % Plt Count (150-400) K/uL MPV (7.40-12.00) fL Add Manual Diff Neutrophils % (Manual) (48.0-80.0) % Lymphocytes % (Manual) (16.0-40.0) % Monocytes % (Manual) (0.0-15.0) % Nucleated RBC % /100WBC Absolute Seg Neuts (1.4-5.7) Lymphocytes # (Manual) (0.6-2.4) Monocytes # (Manual) (0.0-0.8) Nucleated RBCs # K/uL Smudge Cells INR APTT (18.6-31.3) SEC Sodium (136-148) mmol/L Potassium (3.5-5.1) mmol/L Chloride (98-107) mmol/L Carbon Dioxide (21.0-32.0) mmol/L BUN (7.0-18.0) mg/dL Creatinine (0.8-1.3) mg/dL Est Cr Clr Drug Dosing mL/min Estimated GFR (MDRD) ml/min Glucose (74-106) mg/dL Calcium (8.5-10.1) mg/dL Total Bilirubin (0.2-1.0) mg/dL AST (15-37) IU/L ALT (14-63) IU/L Alkaline Phosphatase (46-116) U/L Troponin I (0.000-0.056) ng/mL Total Protein (6.4-8.2) g/dL Albumin (3.4-5.0) g/dL Globulin (2.6-4.0) g/dL Albumin/Globulin Ratio (0.9-1.6) TSH 3rd Generation (0.36-3.74) uIU/mL SARS-CoV-2 RNA ([place]) NEGATIVE (NEGATIVE) Result Diagrams: 02/14/20 03:30 02/14/20 03:30 Sepsis Event Note - Evaluation Sepsis Screening Result: No Definite Risk - Focused Exam Vital Signs: Vital Signs Temp Pulse Resp BP Pulse Ox 02/14/20 06:42 85 16 119/71 95 02/14/20 06:32 83 16 102/65 95 02/14/20 06:17 79 16 123/67 95 02/14/20 06:02 70 16 115/75 96 02/14/20 05:47 95 16 109/71 96 02/14/20 05:32 99 16 118/77 99 02/14/20 05:17 90 18 117/72 95 02/14/20 05:02 124 H 16 120/66 94 L 02/14/20 04:47 82 16 116/54 L 95 02/14/20 04:32 91 16 132/84 96 02/14/20 04:17 74 16 114/63 95 02/14/20 04:02 118 H 16 125/71 98 02/14/20 03:47 91 16 129/75 96 02/14/20 03:25 97.1 F 136 H 18 109/72 97 - Problem List (1) Atrial fibrillation with rapid ventricular response SNOMED Code(s): 638973281282257 ICD Code: I48.91 - UNSPECIFIED ATRIAL FIBRILLATION Status: Acute Current Visit: No (2) CLL (chronic lymphocytic leukemia) SNOMED Code(s): 80360443 ICD Code: C91.10 - CHRONIC LYMPHOCYTIC LEUK OF B-CELL TYPE NOT ACHIEVE REMIS Status: Chronic Current Visit: Yes (3) Elevated TSH SNOMED Code(s): 487005780 ICD Code: R79.89 - OTHER SPECIFIED ABNORMAL FINDINGS OF BLOOD CHEMISTRY Status: Acute Current Visit: Yes (4) Palpitations SNOMED Code(s): 80498976 ICD Code: R00.2 - PALPITATIONS Status: Acute Current Visit: No (5) CKD (chronic kidney disease) stage 3, GFR 30-59 ml/min SNOMED Code(s): 687745596 ICD Code: N18.3 - CHRONIC KIDNEY DISEASE, STAGE 3 (MODERATE) * DO NOT USE * Status: Chronic Priority: Medium Current Visit: No (6) Hypertension SNOMED Code(s): 99391784 ICD Code: I10 - ESSENTIAL (PRIMARY) HYPERTENSION Status: Chronic Priority: High Current Visit: No Qualifiers: Hypertension type: essential hypertension Qualified Code(s): I10 - Essential (primary) hypertension (7) Atrial fibrillation SNOMED Code(s): 29538072 ICD Code: I48.91 - UNSPECIFIED ATRIAL FIBRILLATION Status: Chronic Pr iority: High Current Visit: No Qualifiers: Atrial fibrillation type: paroxysmal Qualified Code(s): I48.0 - Paroxysmal atrial fibrillation Problem List Initiated/Reviewed/Updated: Yes Orders Last 24hrs: Active Orders 24 hr Category Date Time Status Patient Status [ADT] Routine ADT 02/14/20 04:39 Active Diltiazem [Cardizem] 100 mg Med 02/14/20 03:45 Active Sodium Chloride 0.9% [Normal Saline] 100 ml IV NOW Sodium Chloride 0.9% [Saline Flush] Med 02/14/20 03:40 Active 10 ml FLUSH ASDIRECTED PRN Sodium Chloride 0.9% [Saline Flush] Med 02/14/20 03:40 Active 2.5 ml FLUSH ASDIRECTED PRN Saline Lock Insert [OM.PC] Stat Oth 02/14/20 03:40 Ordered Medication Orders Diltiazem HCl 100 mg/ Sodium (Chloride) 100 mls @ 5 mls/hr IV NOW [facility]; Protocol Last Titration: 02/14/20 05:12 Dose: 10 mg/hr, 10 mls/hr Documented by: Admin: 02/14/20 03:50 Dose: 5 mg/hr, 5 mls/hr Documented by: MARILEE Sodium Chloride (Saline Flush) 10 ml FLUSH ASDIRECTED PRN PRN Reason: Keep Vein Open Last Admin: 02/14/20 03:46 Dose: 10 ml Documented by: MARIANNE Sodium Chloride (Saline Flush) 2.5 ml FLUSH ASDIRECTED PRN PRN Reason: Keep Vein Open Last Admin: 02/14/20 03:44 Dose: 2.5 ml Documented by: MARIANNE Assessment/Plan Comment:: 64-year-old male admitted with A. fib RVR 1. A. fib RVR -Continue Cardizem drip wean as possible -Increase home metoprolol dosing to 50 mg 3 times daily for now -Lovenox 85 mg twice daily, full dose anticoagulation -[id number] score is 1 but his CLL is high risk. Will consider oral anticoagulation -Continue to monitor potassium and magnesium daily -Obtain echo -Patient requesting to see wet cleaner machine. Will touch base with Dr. Leung 2. Hypertension; -Hold amlodipine -Monitor with increase of metoprolol 3. CLL: -Stage 0 monitored by oncology every 6 months -Stable VTE prophylaxis: Lovenox GI prophylaxis: Protonix CODE STATUS: Full code Dispo: 2 days - Mortality Measure Prognosis:: Good
[2020-02-14] MEDS ORDERED: Ondansetron 4 MG/2 ML SDV IVPUSH PRN (08:06)
[2020-02-14] MEDS ORDERED: Docusate Sodium 100 MG Cap PO PRN (08:06)
[2020-02-14] MEDS ORDERED: Acetaminophen 325 MG Tab PO PRN (08:06)
[2020-02-14 08:39] LABS: HEMOGLOBIN A1C 5.1 %
[2020-02-14] MEDS ORDERED: Metoprolol Tartrate 50 MG Tab PO SCH (09:30)
[2020-02-14] MEDS ORDERED: Enoxaparin 100 MG/1 ML Syringe SUBCUT SCH (10:15)
[2020-02-14] MEDS: Metoprolol Tartrate 50 MG Tab PO SCH ×2 (10:28→17:48)
--- NOTE | 2020-02-14 11:32 | PN ---
THC Physician - Brief Progress [id number]/04/2021 09:03[facility] Camilo nich[place], [place] - MWN (YURY) - MWN Deana [place] of Service 02/14/2020 09:03HPI/Events of Note eICU Admission NotePt is a 64 yo M presenting to the ED with palpitations. He has a PMH of A fi b, CLL, CKD III (BL Cr 1.4), HTN, TESS and BPH. He underwent successfull CV in 2016, and his case will be reviewed later today by Cardio for possible consideration of another CV. He was started on a Card izem gtt for rate control at 10 mg/hr and has already been turned down to 5 mg/hr. He has a TSH of 5. 09 and although his WBC's are elevated, that is chronic for him with his CLL. I have ordered a Hepari n gtt for anticoagulation and his BUSINESS APPLICATIONS MANAGER will also be asking Cardio for OAC recs this afternoon. He is cu rrently resting comfortably in bed with good rate control. His case was discussed with his nurse Alena . eICU Recommendations:1) Wean Cardizem gtt as po meds for rate control are started likely later toda y2) Anticoagulation with a Heparin gtt now, then OAC to start tonight or tomorrow3) Cardio recs re: p ossibility of repeat CV4) GI ProphylaxisThank you for allowing us to participate in the care of your patient.Interventions Intermediate-Arrhythmia - evaluation and management, Best-practice therapies (e .g. VTE, beta kevin, etc.), Communication with other healthcare providers and/or family, Medication change / dose adjustment
[2020-02-14] MEDS: Diltiazem 120 MG Cap.CD PO SCH (12:41)
[2020-02-14] MEDS ORDERED: Iopamidol 755 MG/ML 500 ML Multipack Bottle IVPUSH STA (14:25)
[2020-02-14] MEDS ORDERED: Pantoprazole 40 MG in Sodium Chloride 0.9% 10 ML IV SCH (14:30)
--- NOTE | 2020-02-14 14:49 | CT ---
INDICATION: Atrial fibrillation TECHNIQUE: CT chest pulmonary angiogram acquired with IV contrast. 100 cc Isovue 370 COMPARISON: None FINDINGS: Cardiovascular structures: Normal vascular enhancement of the pulmonary arteries, no sign of pulmonary embolism. Heart size is normal. No sign of aneurysm or dissection in the thoracic aorta. Mediastinum and chichi: No mass or adenopathy. Lungs: Clear. Pleura and pericardium: No effusions. Chest wall and axilla: No mass or adenopathy. Bones: No significant findings. Upper abdomen: 2.5 centimeter low-attenuation lesion involving the dome of the liver IMPRESSION: No evidence of pulmonary embolus or pneumonia. 2.5 centimeter low-attenuation lesion dome of the liver. Correlation with ultrasound on a nonemergent basis. Please note that all CT scans at this facility use dose modulation, iterative reconstruction, and/or weight-based dosing when appropriate to reduce radiation dose to as low as reasonably achievable. Dictated by Jeffrey Garcia MD @ Feb 14 2020 2:36PM Signed by Dr. Jeffrey Garcia @ Feb 14 2020 2:48PM
[2020-02-14] MEDS: Apixaban 5 MG Tab PO SCH (20:47)
[2020-02-14] MEDS: Sodium Chloride 0.9% 2.5 ML Syringe FLUSH PRN (20:56)
[2020-02-15] MEDS: Metoprolol Tartrate 50 MG Tab PO SCH (01:56)
[2020-02-15 05:54] LABS: CARBON DIOXIDE,CO2 22.5 mmol/L (21.0-32.0); POTASSIUM,K 4.2 mmol/L (3.5-5.1)
[2020-02-15 08:40] VITALS: BP 131/84
[2020-02-15] MEDS: Sodium Chloride 0.9% 2.5 ML Syringe FLUSH PRN (08:48)
[2020-02-15] MEDS: Apixaban 5 MG Tab PO SCH (08:48)
[2020-02-15] MEDS: Diltiazem 120 MG Cap.CD PO SCH (08:49)
[2020-02-15 08:50] VITALS: PULSE 82
[2020-02-15] MEDS ORDERED: Pantoprazole 40 MG Tab.CR PO SCH (09:00)
[2020-02-15] MEDS ORDERED: Aspirin 81 MG Tab.EC PO SCH (09:00)
[2020-02-15] MEDS ORDERED: Metoprolol Succinate 100 MG Tab.ER PO SCH (09:30)
--- NOTE | 2020-02-15 09:51 | PCM.DCSUM1 ---
Discharge Summary - Hospital Course Brief History: This 64-year-old male with past medical history of hypertension, CLL, cardioversion 2016 for A. fib RVR presented to the ER today with complaints of palpitations. He reports he was just laying down to bed in the middle of the night and had a fluttering sensation in his epigastric region. He denies any chest pain shortness of breath lightheadedness or dizziness. He reports it felt very similar to the time before when he had A. fib in 2016. When he presented to the ER he was noted to have A. fib RVR on EKG. He reports since 2016 cardioversion he denies any other atrial fibrillation events that he is aware of. He is followed closely with his CLL which is stage [address] Vides. Reports he is taking amlodipine 5 mg for hypertension which is been well controlled. He denies any recent illness no long travel and no shortness of breath. He denies any fevers or chills no cough. Denies any focal neurological deficits. He denies any tobacco use, no recreational drug use and no alcohol use. He reports he does drink black tea at home but otherwise no other caffeine-containing drinks. In the ER leukocytosis was noted at 27,000 which is his baseline. BMP was stable BUN 20 creatinine 1.5 troponin was negative TSH mildly elevated at 5.09 chest x-ray was negative. Potassium 4.0 magnesium 2.2. He was given Cardizem 20 mg IV push then started on Cardizem drip he has since been weaned down to 5 mg/h. Heart rate continues to be controlled rhythm is atrial fibrillation. He admitted to ICU for A. fib RVR. Per chart review echo was completed in 2016 EF of 60 to 65% mild aortic valve sclerosis with no stenosis. He did previously have a MAUREEN prior to cardioversion in [address] which was [address] Ennis Diagnosis: Stroke: No - Discharge Data Discharge Date: 02/15/20 Discharge Disposition: Home, Self-Care 01 Condition: Stable - Referral to Home Health Primary Care Physician: PCP None - Discharge Diagnosis/Problem(s) (1) Atrial fibrillation with rapid ventricular response SNOMED Code(s): 237453453634293 ICD Code: I48.91 - UNSPECIFIED ATRIAL FIBRILLATION Status: Acute Current Visit: No (2) CLL (chronic lymphocytic leukemia) SNOMED Code(s): 96933755 ICD Code: C91.10 - CHRONIC LYMPHOCYTIC LEUK OF B-CELL TYPE NOT ACHIEVE REMIS Status: Chronic Current Visit: Yes (3) Elevated TSH SNOMED Code(s): 363166184 ICD Code: R79.89 - OTHER SPECIFIED ABNORMAL FINDINGS OF BLOOD CHEMISTRY Status: Acute Current Visit: Yes (4) Palpitations SNOMED Code(s): 89099864 ICD Code: R00.2 - PALPITATIONS Status: Acute Current Visit: No (5) CKD (chronic kidney disease) stage 3, GFR 30-59 ml/min SNOMED Code(s): 534881531 ICD Code: N18.3 - CHRONIC KIDNEY DISEASE, STAGE 3 (MODERATE) * DO NOT USE * Status: Chronic Priority: Medium Current Visit: No (6) Hypertension SNOMED Code(s): 84784900 ICD Code: I10 - ESSENTIAL (PRIMARY) HYPERTENSION Status: Chronic Priority: High Current Visit: No Qualifiers: Hypertension type: essential hypertension Qualified Code(s): I10 - Essential (primary) hypertension (7) Atrial fibrillation SNOMED Code(s): 62911887 ICD Code: I48.91 - UNSPECIFIED ATRIAL FIBRILLATION Status: Chronic Pr iority: High Current Visit: No Qualifiers: Atrial fibrillation type: paroxysmal Qualified Code(s): I48.0 - Paroxysmal atrial fibrillation - Patient Summary/Data Hospital Course: Admission diagnoses A. fib RVR Discharge diagnoses A. fib RVR, RVR resolved Other PMH: Hypertension CLL Doing was admitted secondary to palpitations he was found to be in A. fib RVR. He was treated with diltiazem drip for rate control. He was given Lovenox initially for anticoagulation but then transition to Eliquis. We did discuss treatment plan with Dr. Leung, cardiology who agreed with increase of metoprolol as well as adding diltiazem 240 mg p.o. daily. He was transitioned off the drip and today he is feeling much improved. He remains in A. fib but rate is controlled and has been hemodynamically stable and asymptomatic. Echo was obtained which shows preserved EF 65 to 70%. Mild concentric LVH mildly dilated left and right atrium's with mild aortic valve sclerosis without stenosis. Right ventricular systolic pressure at 25mmHg no regional wall abnormalities noted. CTA of chest was obtained to rule out any PE. PE was ruled out cyst noted on liver which has been present in previous exams. No change. He will be discharged home today on Eliquis 5 mg twice daily for full anticoagulation due to a [id number] score now of 2. He will be started on diltiazem 240 mg p.o. daily along with metoprolol XL 100 mg daily. His home amlodipine will be discontinued at this time. He will also be continued on aspirin daily. He was counseled on bleeding risk and signs of bleeding to watch for. He verbalized understanding. He was also counseled on side effects of diltiazem as well as metoprolol. He is to monitor blood pressure and heart rate and notify PCP or Dr. Burch of any low heart rates. He is to seek medical care if he continues to have palpitations or any chest pain shortness of breath or lightheadedness. Follow-up with PCP as well as cardiology have been arranged prior to discharge. He is to return to ER or clinic sooner if concerns should arise. - Patient Instructions Diet: Heart Healthy Diet Activity: As Tolerated, No Strenuous Activities Driving: May Drive Today Showering/Bathing: May Shower Notify Provider of: Fever, Increased Pain, Swelling and Redness, Drainage, Nausea and/or Vomiting Other/Special Instructions: Monitor blood pressure daily. If you notice blood pressure is under 100 on the top hold medication and contact PCP or Dr. Burch for further instructions. Monitor heart rate if heart rate is below 50, to PCP or Dr. Burch. Monitor for signs of bleeding. No contact sports or activities where trauma is likely. - Discharge Plan *PRESCRIPTION DRUG MONITORING PROGRAM REVIEWED*: Not Applicable *COPY OF PRESCRIPTION DRUG MONITORING REPORT IN PATIENT OLGA: Not Applicable Prescriptions/Med Rec: Diltiazem HCl [Diltiazem 24Hr Cd] 240 mg PO DAILY #30 cap.er.24h Apixaban [Eliquis] 5 mg PO BID #60 tablet Metoprolol Succinate [Toprol XL 100mg] 100 mg PO DAILY #30 tab.er Home Medications: Home Meds Aspirin [Halfprin] 81 mg PO DAILY 05/23/15 [History] Nitroglycerin [Nitrostat] 0.4 mg SL ASDIRECTED PRN 10/05/15 [History] Apixaban [Eliquis] 5 mg PO BID #60 tablet 02/15/20 [Rx] Diltiazem HCl [Diltiazem 24Hr Cd] 240 mg PO DAILY #30 cap.er.24h 02/15/20 [Rx] Metoprolol Succinate [Toprol XL 100mg] 100 mg PO DAILY #30 tab.er 02/15/20 [Rx] Oxygen Therapy Mode: Room Air Patient Handouts: Thyroid-Stimulating Hormone Test, Metoprolol tablets, Nonspecific Chest Pain, Adult, [id number], Palpitations, [id number], Diltiazem tablets, Apixaban oral tablets, Atrial Fibrillation, [id number] Referrals: Dayron Leung MD [Physician] - 02/21/20 1:30 pm Mele Ennis MD [Physician] - 03/02/20 2:45 pm - Discharge Summary/Plan Comment DC Time >30 min.: No - Patient Data Vitals - Most Recent: Last Vital Signs Temp 97.8 F 02/15/20 08:39 Pulse 82 02/15/20 08:49 Resp 16 02/15/20 08:39 BP 131/84 02/15/20 08:49 Pulse Ox 95 02/15/20 08:39 Weight - Most Recent: 83.5 kg I&O - Last 24 hours: Intake & Output 02/14/20 02/15/20 02/15/20 22:59 06:59 14:59 Intake Total 988 500 Output Total 1100 200 Balance -112 300 Lab Results - Last 24 hrs: Laboratory Results - last 24 hr 02/15/20 02/15/20 Range/Units 05:10 05:10 WBC 31.18 H (4.0-11.0) K/uL RBC 5.12 (4.50-5.90) M/uL Hgb 14.9 (13.0-17.0) g/dL Hct 44.9 (38.0-50.0) % MCV 87.7 (80.0-98.0) fL MCH 29.1 (27.0-32.0) pg MCHC 33.2 (31.0-37.0) g/dL RDW Std Deviation 46.3 (28.0-62.0) fl RDW Coeff of Alessia 14 (11.0-15.0) % Plt Count 177 (150-400) K/uL MPV 10.00 (7.40-12.00) fL Add Manual Diff YES Neutrophils % (Manual) 19 L (48.0-80.0) % Band Neutrophils % 2 % Lymphocytes % (Manual) 76 H (16.0-40.0) % Monocytes % (Manual) 3 (0.0-15.0) % Nucleated RBC % 0.0 /100WBC Absolute Seg Neuts 5.9 H (1.4-5.7) Band Neutrophils # 0.6 Lymphocytes # (Manual) 23.7 H (0.6-2.4) Monocytes # (Manual) 0.9 H (0.0-0.8) Nucleated RBCs # 0 K/uL Smudge Cells FEW Sodium 138 (136-148) mmol/L Potassium 4.2 (3.5-5.1) mmol/L Chloride 105 (98-107) mmol/L Carbon Dioxide 22.5 (21.0-32.0) mmol/L BUN 26 H (7.0-18.0) mg/dL Creatinine 1.4 H (0.8-1.3) mg/dL Est Cr Clr Drug Dosing 50.21 mL/min Estimated GFR (MDRD) 50.7 ml/min Glucose 104 (74-106) mg/dL Calcium 9.2 (8.5-10.1) mg/dL Magnesium 2.0 (1.8-2.4) mg/dL Triglycerides 180 (0-200) mg/dL Cholesterol 156 (50-200) mg/dL LDL Cholesterol, Calc 91 (60-180) mg/dL VLDL Cholesterol 36 (5-55) mg/dL HDL Cholesterol 29 L (40-60) mg/dL Cholesterol/HDL Ratio 5.4 (3.3-6.0) Med Orders - Current: Current Medications Acetaminophen (Tylenol) 650 mg PO Q4H PRN PRN Reason: Pain (Mild 1-3)/fever Apixaban (Eliquis) 5 mg PO BID [facility] Last Admin: 02/15/20 08:48 Dose: 5 mg Documented by: Aspirin (Halfprin) 81 mg PO DAILY [facility] Last Admin: 02/15/20 08:48 Dose: 81 mg Documented by: Diltiazem HCl (Cardizem Cd) 240 mg PO DAILY [facility] Last Admin: 02/15/20 08:49 Dose: 240 mg Documented by: Docusate Sodium (Colace) 100 mg PO BID PRN PRN Reason: Constipation Metoprolol Succinate (Toprol Xl) 100 mg PO DAILY [facility] Ondansetron HCl (Zofran) 4 mg IVPUSH Q4H PRN PRN Reason: Nausea Pantoprazole Sodium (Protonix) 40 mg PO DAILY [facility] Last Admin: 02/15/20 08:48 Dose: 40 mg Documented by: Sodium Chloride (Saline Flush) 2.5 ml FLUSH ASDIRECTED PRN PRN Reason: Keep Vein Open Last Admin: 02/15/20 08:48 Dose: 2.5 ml Documented by: Discontinued Medications Diltiazem HCl (Diltiazem) 20 mg IVPUSH ONETIME ONE Stop: 02/14/20 03:43 Last Admin: 02/14/20 03:45 Dose: 20 mg Documented by: Enoxaparin Sodium (Lovenox) 85 mg SUBCUT Q12H [facility] Last Admin: 02/14/20 10:29 Dose: 85 mg Documented by: Sodium Chloride (Normal Saline) 1,000 mls @ 999 mls/hr IV .Bolus ONE Stop: 02/14/20 04:40 Last Admin: 02/14/20 03:44 Dose: 999 mls/hr Documented by: Diltiazem HCl 100 mg/ Sodium (Chloride) 100 mls @ 5 mls/hr IV NOW [facility]; Protocol Last Titration: 02/14/20 11:03 Dose: 10 mg/hr, 10 mls/hr Documented by: Sodium Chloride (Normal Saline) Confirm Administered Dose 100 mls @ as directed .ROUTE .STK-MED ONE Stop: 02/14/20 03:49 Last Admin: 02/14/20 03:51 Dose: Not Given Documented by: Diltiazem HCl 100 mg/ Sodium (Chloride) 100 mls @ 5 mls/hr IV ASDIRECTED [facility]; Protocol Last Titration: 02/14/20 14:00 Dose: 2.5 mg/hr, 2.5 mls/hr Documented by: Pantoprazole Sodium 40 mg/ (Sodium Chloride) 10 mls @ 300 mls/hr IV DAILY [facility] Last Admin: 02/14/20 15:58 Dose: 300 mls/hr Documented by: Iopamidol (Isovue Multipack-370 (76%)) 100 ml IVPUSH ONETIME STA Stop: 02/14/20 14:26 Last Admin: 02/14/20 14:30 Dose: 100 ml Documented by: Metoprolol Tartrate (Lopressor) 50 mg PO Q12H [facility] Last Admin: 02/14/20 10:39 Dose: Not Given Documented by: Metoprolol Tartrate (Lopressor) 50 mg PO Q8H [facility] Last Admin: 02/15/20 01:56 Dose: 50 mg Documented by: Sodium Chloride (Saline Flush) 10 ml FLUSH ASDIRECTED PRN PRN Reason: Keep Vein Open Last Admin: 02/14/20 03:46 Dose: 10 ml Documented by: Sodium Chloride (Saline Flush) 2.5 ml FLUSH ASDIRECTED PRN PRN Reason: Keep Vein Open Last Admin: 02/14/20 03:44 Dose: 2.5 ml Documented by: - Exam General: Reports: Alert, Oriented, Cooperative, No Acute Distress HEENT: Reports: Pupils Equal Lungs: Reports: Clear to Auscultation, Normal Respiratory Effort Cardiovascular: Reports: Regular Rate, Irregular Rhythm GI/Abdominal Exam: Normal Bowel Sounds, Soft, Non-Tender Extremities: Normal Inspection, Normal Range of Motion, Non-Tender, No Pedal Edema Wound/Incisions: Reports: Healing Well Neurological: Reports: No New Focal Deficit Psy/Mental Status: Reports: Alert, Normal Affect, Normal Mood
--- NOTE | 2020-02-15 12:51 | ECHO ---
EXAM DATE: 02/14/20 PATIENT'S AGE: 64 The ECHO report has been scanned into [employer] and can be seen in this patient's EMR (Electronic Medical Record) under the REPORTS section. The report has also been scanned into PACS. DESIRE
== END 2020-02-15 11:00 | disposition home or self-care (01) | DRG 201 ==
LOC: MW.ED 03:22 → MW.ICU 04:39 → MW.MS 23:19
PROVIDERS: ADMIT Internal Medicine; ATTEND Internal Medicine
DX: I48.0 Paroxysmal atrial fibrillation (principal); C91.10 Chronic lymphocytic leukemia of B-cell type not having achieved remission; Z79.01 Long term (current) use of anticoagulants; R79.89 Other specified abnormal findings of blood chemistry; I12.9 Hypertensive chronic kidney disease with stage 1 through stage 4 chronic kidney disease, or unspecified chronic kidney disease; N18.30 Chronic kidney disease, stage 3 unspecified; N40.0 Benign prostatic hyperplasia without lower urinary tract symptoms; G47.33 Obstructive sleep apnea (adult) (pediatric); F41.9 Anxiety disorder, unspecified; Z98.890 Other specified postprocedural states; Z90.49 Acquired absence of other specified parts of digestive tract; Z20.822 Contact with and (suspected) exposure to COVID-19
CPT/HCPCS: 36415; 71045; 71045-26; 71275; 71275-26; 80048; 80053; 80061; 81003; 83036; 83735; 84443; 84484; 85025; 85610; 85730; 93005; 93010; 93306; 96365; 99285-25; 99291; A9270-GY; C9113; J1650; J3490; J7030; J7050; Q9967; U0002

== ENCOUNTER 2021-06-08 07:56 | Day surgery (SDC) | payer BC ==
[~2021-06-08 07:56] MED LIST changes: +Propofol 200 MG/20 ML SDV ONE; +fentaNYL 100 MCG/2 ML SDV ONE
[2021-06-08] MEDS ORDERED: fentaNYL 250 MCG/5 ML SDV ONE (08:48)
[2021-06-08] MEDS ORDERED: Rocuronium Bromide 50 MG/5 ML Syringe ONE (09:01)
[2021-06-08] MEDS ORDERED: HYDROmorphone 2 MG/ML Syringe ONE (09:14)
[2021-06-08] MEDS ORDERED: Ketorolac 30 MG/ML SDV ONE (09:46)
[2021-06-08] MEDS ORDERED: Ondansetron 4 MG/2 ML SDV ONE (09:46)
[2021-06-08] MEDS ORDERED: Sugammadex Sodium 200 MG/2 ML VIAL ONE (09:46)
[2021-06-08] MEDS ORDERED: Glycopyrrolate 0.2 MG/ML SDV ONE (09:46)
[2021-06-08] MEDS ORDERED: Dexamethasone 4 MG/ML 5 ML MDV ONE (09:46)
[2021-06-08] MEDS ORDERED: Propofol 200 MG/20 ML SDV ONE (10:53)
[2021-06-08] MEDS ORDERED: Lactated Ringers 1,000 ML IV SCH (11:15)
[2021-06-08 14:12] VITALS: BP 125/72; PULSE 58
== END 2021-06-08 11:48 | disposition home or self-care (01) ==
LOC: MW.SDS 07:56
PROVIDERS: ATTEND Surgery
DX: K21.00 Gastro-esophageal reflux disease with esophagitis, without bleeding (principal); K29.50 Unspecified chronic gastritis without bleeding; K57.30 Diverticulosis of large intestine without perforation or abscess without bleeding; K31.7 Polyp of stomach and duodenum; K44.9 Diaphragmatic hernia without obstruction or gangrene; F41.8 Other specified anxiety disorders; I10 Essential (primary) hypertension; G73.3 Myasthenic syndromes in other diseases classified elsewhere; I48.0 Paroxysmal atrial fibrillation; Z91.048 Other nonmedicinal substance allergy status; Z90.49 Acquired absence of other specified parts of digestive tract; Z98.890 Other specified postprocedural states; Z79.01 Long term (current) use of anticoagulants; Z79.899 Other long term (current) drug therapy
CPT/HCPCS: 43239; 45378; J2704; J7120; 00813; J1100; J1170; J1885; J2405; J3010; J3490